=== PATIENT | female | born 1955 | race Caucasian/White ===

== ENCOUNTER 2016-10-21 05:14 | Day surgery (SDC) | payer MEDICAID ==
[2016-10-19 11:43] LABS: HEMATOCRIT 40.5 % (36.0-47.0); HEMOGLOBIN 13.3 g/dL (12.0-15.5); HGB HCT DIFFERENCE -0.6; MEAN CORPUSCULAR HEMOGLOBIN 27.9 pg (27.0-33.4); MEAN CORPUSCULAR HGB CONC 32.9 g/dL (32.0-36.0); MEAN CORPUSCULAR VOLUME 85 fl (80-97); RED BLOOD COUNT 4.76 10^6/uL (3.72-5.28); RED CELL DISTRIBUTION WIDTH 14.3 % (11.5-14.0)
[2016-10-19 11:58] LABS: APPEARANCE,URINE SLIGHTLY-CLOUDY; BILIRUBIN,URINE NEGATIVE (NEGATIVE); GLUCOSE, URINE NEGATIVE (NEGATIVE); KETONES,URINE NEGATIVE (NEGATIVE); LEUKOCYTE ESTERASE,URINE LARGE (NEGATIVE); NITRITE,URINE NEGATIVE (NEGATIVE); PROTEIN,URINE NEGATIVE (NEGATIVE); URINE SPECIFIC GRAVITY 1.012; UROBILINOGEN,URINE NEGATIVE mg/dL (<2.0)
[2016-10-19 12:10] LABS: ANION GAP 13 (5-19); BLOOD UREA NITROGEN 16 mg/dL (7-20); CALCIUM 9.3 mg/dL (8.4-10.2); CARBON DIOXIDE 27 mmol/L (22-30); CHLORIDE 103 mmol/L (98-107); CREATININE RESULT 1.06 mg/dL (0.52-1.25); GLUCOSE 129 mg/dL (75-110); POTASSIUM 4.3 mmol/L (3.6-5.0); SODIUM 143.1 mmol/L (137-145)
--- NOTE | 2016-10-19 13:40 | EKG REPORT ---
SEVERITY:- ABNORMAL ECG - SINUS RHYTHM LVH WITH IVCD, LAD AND SECONDARY REPOL ABNRM : Confirmed by: Aranza Gutierres MD 19-Oct-2016 13:38:56
[~2016-10-21 05:14] MED LIST: LACTATED RINGERS 1000 ML IV PRN; LIDOCAINE 0.5% INJ-PF (5 MG/ML) 50 ML SDV SUBCUT PRN
[2016-10-21] MEDS ORDERED: ACETAMINOPHEN 100 ML IV ONE (06:52)
[2016-10-21] MEDS ORDERED: FENTANYL CITRATE INJ/PF 100 MCG/2 ML AMPUL ONE (06:52)
[2016-10-21] MEDS ORDERED: MIDAZOLAM 2 MG/2 ML INJ ONE (06:52)
[2016-10-21] MEDS ORDERED: ONDANSETRON HCL INJ/PF 4 MG/2 ML SDV ONE (06:52)
[2016-10-21] MEDS ORDERED: PROPOFOL INJ 200 MG/20 ML VIAL IV ONE (06:52)
[2016-10-21] MEDS ORDERED: METOCLOPRAMIDE HCL INJ/PF 10 MG/2 ML SDV ONE (07:05)
[2016-10-21] MEDS ORDERED: FAMOTIDINE INJ/PF 20 MG/2 ML SDV IV ONE (07:05)
[2016-10-21] MEDS ORDERED: LIDOCAINE 1% INJ-PF (10 MG/ML) 30 ML SDV ONE (07:23)
[2016-10-21] MEDS ORDERED: DIPHENHYDRAMINE HCL 50 MG/ML VIAL IV PRN (07:36)
[2016-10-21] MEDS ORDERED: PROMETHAZINE HCL INJ 25 MG/1 ML VIAL IV PRN ×2 (07:36)
[2016-10-21] MEDS ORDERED: MORPHINE SULFATE 10 MG/ML INJ IV PRN (07:36)
[2016-10-21] MEDS ORDERED: FENTANYL CITRATE INJ/PF 100 MCG/2 ML AMPUL IV PRN ×2 (07:36)
[2016-10-21] MEDS ORDERED: MEPERIDINE HCL/PF INJ 25 MG/1 ML DISP.SYRIN IV PRN (07:36)
--- NOTE | 2016-10-21 08:55 | OPERATIVE REPORT E ---
Operative Report NAME: ANA CRISTINA DOVE : 1955 AGE: 61Y DATE OF SURGERY: 10/21/2016 ROOM: PREOPERATIVE DIAGNOSIS: Perimenopausal bleeding. POSTOPERATIVE DIAGNOSES: 1. Perimenopausal bleeding. 2. Endometrial polyp. PROCEDURE: 1. Operative hysteroscopy. 2. D and C. SURGEON: TAVIA BOCANEGRA M.D. COMPLICATIONS: None. ANESTHESIA: LMAC, paracervical block. INDICATIONS FOR PROCEDURE: The patient had perimenopausal bleeding, FSH of 30, and apparently irregular bleeding hysteroscopy approximately a year ago. Endometrial stripe preoperatively was preop showed a 3 mm stripe. An outpatient biopsy result that was not significant. It was recommended she undergo operative hysteroscopy for further assessment. The usual risks of bleeding, infection, anesthesia, and damage to organs and tissues were discussed and the patient understood. DESCRIPTION OF PROCEDURE: The patient was taken to the operating room and placed in the modified lithotomy position. After adequate anesthesia was performed, paracervical block placed. The anterior lip of the cervix grasped single tooth tenaculum. Cervix dilated to admit an operative hysteroscope. Hysteroscopy ensued demonstrating two thumb like small endometrial polyps present. . Atrophic endometrium noted elsewhere. No other diffuse lesions are noted in the pelvis. Operative hysteroscopy ensued. The curettage followed. Good hemostasis was noted at the completion of procedure productive of a moderate amount of tissue and bleeding with curettage. Biopsies were done. At completion of procedure, all instruments were removed. Patient awakened and taken to room in stable condition. DICTATING PHYSICIAN: TAVIA BOCANEGRA M.D. [id number] PHY#: [id number] ID: [id number] JOB#: [id number] ACCT: [id number] cc:TAVIA BOCANEGRA M.D. >
[2016-10-21] MEDS ORDERED: OXYCODONE-ACETAMINOPHEN 5-325 MG TABLET PO PRN (09:08)
[2016-10-21] MEDS ORDERED: MORPHINE SULFATE 10 MG/ML INJ INJ PRN (09:12)
[2016-10-21] MEDS ORDERED: PROMETHAZINE HCL INJ 25 MG/1 ML VIAL IM PRN (09:13)
[2016-10-21 09:43] VITALS: BP 130/74
== END 2016-10-21 09:20 | disposition home or self-care (01) ==
LOC: OROUT 05:14
PROVIDERS: ATTEND Specialist
PROC: 0UDB8ZX Extraction of Endometrium, Via Natural or Artificial Opening Endoscopic, Diagnostic (ICD-10-PCS; principal; 2016-10-21 07:15)
DX: N92.4 Excessive bleeding in the premenopausal period (principal); N84.0 Polyp of corpus uteri; J45.909 Unspecified asthma, uncomplicated; K21.9 Gastro-esophageal reflux disease without esophagitis; E11.9 Type 2 diabetes mellitus without complications; R01.1 Cardiac murmur, unspecified; Z88.6 Allergy status to analgesic agent; Z88.8 Allergy status to other drugs, medicaments and biological substances
CPT/HCPCS: 93005; 86900; 86901; 36415; 86850; 82962; 85027; 80048; 81001; 88305 ×2; 71020; 93010; 58558; J2250; J3010; J3490; J2765; J2405; J2704; S0028; J0131; 940

== ENCOUNTER → 2017-01-09 | Outpatient (CLI) | payer MEDICAID | LOC: WI 08:06 | PROVIDERS: ATTEND Family Medicine | DX: M81.0 Age-related osteoporosis without current pathological fracture (principal) | CPT/HCPCS: 77080 ==

== ENCOUNTER → 2017-11-09 | Outpatient (CLI) | payer MEDICAID ==
--- NOTE | 2017-11-14 09:08 | XCELERA REPORT ---
[address] [address] Transthoracic Echocardiogram Report Name: ANA CRISTINA DOVE Age: 62 yrs Gender: Female : 1955 Patient Status: Outpatient Patient Location: Study Date: 11/09/2017 12:44 PM Height: 64 in Weight: 192 lb BSA: 1.9 m2 Procedure: A complete two-dimensional transthoracic echocardiogram was performed (2D, M-mode, spectral and color flow Doppler). The study was technically difficult with many images being suboptimal in quality. Reason For Study: MURMUR Ordering Physician: JACKIE VIEIRA Performed By: Rachael Sharif Interpretation Summary The study was technically difficult with many images being suboptimal in quality. Left ventricular systolic function is low normal. Doppler measurements suggest pseudonormalized left ventricular relaxation, which is associated with grade II/IV or mild to moderate diastolic dysfunction Regional wall motion abnormalities cannot be excluded due to limited visualization. There is borderline concentric left ventricular hypertrophy. The left ventricle is grossly normal size. The right ventricular systolic function is normal. Borderline right ventricular enlargement. The right atrium is normal. Borderline left atrial enlargement. There is no mitral valve stenosis. There is a trace amount of mitral regurgitation No aortic regurgitation is present. There is no aortic valve stenosis There is a trace or physiologic amount of tricuspid regurgitation Tricuspid regurgitation jet envelope not well defined to measure RV systolic pressure accurately. The aortic root is not well visualized but is probably normal size. The inferior vena cava appeared normal and decreased < 50% with respiration (RAP 10-15 mmHg) There is no pericardial effusion. MMode/2D Measurements & Calculations RVDd: 2.9 cm LVIDd: 5.1 cm FS: 44.8 % Ao root diam: 2.5 cm IVSd: 0.97 cm LVIDs: 2.8 cm EDV(Teich): 121.9 ml LVPWd: 0.99 cm ESV(Teich): 29.5 ml Ao root area: 4.9 cm2 EF(Teich): 75.8 % Doppler Measurements & Calculations MV E max mario alberto: MV dec slope: Ao V2 max: LV V1 max P.7 cm/sec 133.7 cm/sec 2.8 mmHg MV A max mario alberto: 370.2 cm/sec2 Ao max PG: LV V1 max: 83.3 cm/sec MV dec time: 7.1 mmHg 83.1 cm/sec MV E/A: 0.91 0.20 sec PA V2 max: PI end-d mario alberto: TR max mario alberto: 71.4 cm/sec 91.9 cm/sec 227.5 cm/sec PA max PG: TR max P.0 mmHg 20.9 mmHg Left Ventricle The left ventricle is grossly normal size. There is borderline concentric left ventricular hypertrophy. Left ventricular systolic function is low normal. Doppler measurements suggest pseudonormalized left ventricular relaxation, which is associated with grade II/IV or mild to moderate diastolic dysfunction. Regional wall motion abnormalities cannot be excluded due to limited visualization. Right Ventricle Borderline right ventricular enlargement. There is normal right ventricular wall thickness. The right ventricular systolic function is normal. Atria The right atrium is normal. Borderline left atrial enlargement. Interarterial septum not well visualized and not well dopplered. Cannot comment on ASD/PFO presence. Mitral Valve The mitral valve is grossly normal. The mitral valve leaflets are sclerotic, but show no functional abnormalities. There is no mitral valve stenosis. There is a trace amount of mitral regurgitation. Aortic Valve The aortic valve is not well visualized secondary to technical limitations. There is no aortic valve stenosis. No aortic regurgitation is present. Tricuspid Valve The tricuspid valve is not well visualized, but is grossly normal. There is no tricuspid stenosis. There is a trace or physiologic amount of tricuspid regurgitation. Tricuspid regurgitation jet envelope not well defined to measure RV systolic pressure accurately. Pulmonic Valve The pulmonic valve is not well visualized. Great Vessels The aortic root is not well visualized but is probably normal size. The inferior vena cava appeared normal and decreased < 50% with respiration (RAP 10-15 mmHg). Effusions There is no pericardial effusion. : JACKIE VIEIRA > Jelani Valdivai
== END ==
LOC: SP 12:09
PROVIDERS: ATTEND Physician Assistant
DX: R01.1 Cardiac murmur, unspecified (principal)
CPT/HCPCS: 93306

== ENCOUNTER → 2018-01-23 | Outpatient (CLI) | payer MEDICAID ==
--- NOTE | 2018-01-23 14:18 | WOMENS IMAGING REPORT ---
EXAM DESCRIPTION: BILAT SCREENING MAMMO W/CAD COMPLETED DATE/TIME: 01/23/2018 1:36 pm REASON FOR STUDY: SCREENING MAMMO Z12.31 ENCNTR SCREEN MAMMOGRAM FOR MALIGNANT NEOPLASM OF DARRICK COMPARISON: Multiple since 2012 TECHNIQUE: Standard craniocaudal and mediolateral oblique views of each breast recorded using digita l acquisition. LIMITATIONS: None. FINDINGS: No masses, calcifications or architectural distortion. No areas of suspicion. Read with the assistance of CAD. .[facility] - R2 Cenova Version 1.3 .[facility] - R2 Cenova Version 1.3 .[facility] - R2 Cenova Version 2.4 .[facility] [place] R2 Cenova Version 2.4 .[facility] - R2 Performance Improvement Analyst Version 9.2 IMPRESSION: NORMAL MAMMOGRAM. BIRADS 1. BREAST DENSITY: a. The breasts are almost entirely fatty. BIRAD: 1 NEGATIVE RECOMMENDATION: ROUTINE SCREENING COMMENT: The patient has been notified of the results by letter per SA requirements. Additional no tification policies are in place for contacting patient with suspicious or incomplete findings. Quality ID #[id number]: The [employer] recommends an annual screening mammogram for women aged 40 years or over. This facility utilizes a reminder system to ensure that all patients receive reminder letters, and/or direct phone calls for appointments. This includes reminders for routine scr eening mammograms, diagnostic mammograms, or other Breast Imaging Interventions when appropriate. Th is patient will be placed in the appropriate reminder system. The [employer] (ACR) has developed recommendations for screening MRI of the breast s in certain patient populations, to be used in conjunction with mammography. Breast MRI surveillanc e may be appropriate for women with more than 20% lifetime risk of developing breast cancer as deter mined by genetic testing, significant family history of the disease, or history of mantle radiation f or Hodgkins Disease. ACR Practice Guidelines 2008. TECHNICAL DOCUMENTATION: FINDING NUMBER: (1) ASSESSMENT: (1) JOB ID: [id number] [employer]- All Rights Reserved Reading location - IP/workstation name: [email or web address]
== END ==
LOC: WI 12:46
PROVIDERS: ATTEND Physician Assistant
DX: Z12.31 Encounter for screening mammogram for malignant neoplasm of breast (principal)
CPT/HCPCS: 77067

== ENCOUNTER 2018-03-13 07:10 | Emergency (ER) | payer MEDICAID ==
[2018-03-13] MEDS ORDERED: INDOMETHACIN 50 MG CAPSULE PO ONE (07:51)
--- NOTE | 2018-03-13 08:19 | RADIOLOGY REPORT (SQ) ---
EXAM DESCRIPTION: FOOT RIGHT COMPLETE COMPLETED DATE/TIME: 03/13/2018 8:10 am REASON FOR STUDY: right foot pain, mcp joint worse COMPARISON: 09/29/2016 NUMBER OF VIEWS: Three views. TECHNIQUE: AP, lateral and oblique radiographic images acquired of the right foot. LIMITATIONS: None. FINDINGS: MINERALIZATION: Marked osteopenia. BONES: No acute fracture. Postsurgical changes with ankle fusion. Talonavicular osteophytes. JOINTS: No effusions. SOFT TISSUES: No soft tissue swelling. No foreign body. OTHER: No other significant finding. IMPRESSION: Surgical changes. Degenerative changes. TECHNICAL DOCUMENTATION: JOB ID: [id number] [employer]- All Rights Reserved Reading location - IP/workstation name: [email or web address]
--- NOTE | 2018-03-13 09:28 | ER Document Report ---
ED Extremity Problem, Lower - General Chief Complaint: Foot Pain Stated Complaint: ANKLE PAIN Time Seen by Provider: 03/13/18 07:30 Mode of Arrival: Ambulatory Information source: Patient Notes: Patient is a 62-year-old female with a history of gout who presents to the ER today for right foot pain, worse at the base of the big toe. Patient states this started approximately 1 week ago. She denies any injury. Patient admits to some mild redness and warmth around that great toe as well. 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 TRAVEL OUTSIDE OF THE [place] IN LAST 30 DAYS: No - Related Data Allergies/Adverse Reactions: allopurinol [Allopurinol] Allergy (Verified 09/29/16 08:12) celecoxib [From Celebrex] Allergy (Verified 09/29/16 08:12) ibuprofen [Ibuprofen] Allergy (Verified 09/29/16 08:12) Lactase [From Dairy Ease] Allergy (Verified 09/29/16 08:12) nickel [Nickel] Allergy (Verified 09/29/16 08:12) Past Medical History - General Information source: Patient - Social History Smoking Status: Never Smoker Frequency of alcohol use: Social Drug Abuse: None Family History: None Patient has suicidal ideation: No Patient has homicidal ideation: No - Past Medical History Cardiac Medical History: Denies: Hx Congestive Heart Failure, Hx Coronary Artery Disease, Hx Heart Attack, Hx Hypertension Pulmonary Medical History: Reports: Hx Asthma, Hx Bronchitis Denies: Hx COPD, Hx Pneumonia Neurological Medical History: Denies: Hx Cerebrovascular Accident, Hx Seizures Endocrine Medical History: Reports: Hx Diabetes Mellitus Type 2 Renal/ Medical History: Denies: Hx Peritoneal Dialysis GI Medical History: Denies: Hx Hepatitis, Hx Ulcer Musculoskeltal Medical History: Reports Hx Arthritis, Reports Hx Gout Infectious Medical History: Denies: Hx Hepatitis Past Surgical History: Reports: Hx Kidney (Renal Surgery), Hx Orthopedic Surgery - left finger, shoulder, right ankle, left 3rd finger. Denies: Hx Pacemaker - Immunizations Hx Diphtheria, Pertussis, Tetanus Vaccination: Yes Review of Systems - Review of Systems Constitutional: No symptoms reported EENT: No symptoms reported Cardiovascular: No symptoms reported Respiratory: No symptoms reported Gastrointestinal: No symptoms reported Genitourinary: No symptoms reported Female Genitourinary: No symptoms reported Musculoskeletal: See HPI Skin: No symptoms reported Hematologic/Lymphatic: No symptoms reported Neurological/Psychological: No symptoms reported Physical Exam - Vital signs Vitals: Temp Pulse Resp BP Pulse Ox 97.8 F 73 16 144/76 H 96 03/13/18 07:18 03/13/18 07:18 03/13/18 07:18 03/13/18 07:18 03/13/18 07:18 - Notes Notes: PHYSICAL EXAMINATION: GENERAL: well appearing, in no acute distress. HEAD: Atraumatic, normocephalic. EYES: Pupils equal round and reactive to light, extraocular movements intact, sclera anicteric, conjunctiva are normal. NECK: Normal range of motion, supple without lymphadenopathy LUNGS: CTAB and equal. No wheezes rales or rhonchi. HEART: Regular rate and rhythm without murmurs EXTREMITIES: Tender to base of right great toe over the MTP joint, mild erythema , otherwise normal range of motion, no pitting edema. No cyanosis. NEUROLOGICAL: Cranial nerves grossly intact. Normal sensory/motor exams. PSYCH: Normal mood, normal affect. SKIN: Warm, Dry, normal turgor, no rashes or lesions noted Course - Re-evaluation Re-evalutation: 03/13/18 09:35 Uric acid level is elevated today, x-ray reports chronic changes of fusion to the ankle but otherwise no acute pathology. Patient given 2 doses of Colcrys here, 11.2 mg and 10.6 mg to stop acute flare and sent home on indomethacin. - Vital Signs Vital signs: Temp Pulse Resp BP Pulse Ox 97.8 F 73 16 144/76 H 96 03/13/18 07:18 03/13/18 07:18 03/13/18 07:18 03/13/18 07:18 03/13/18 07:18 - Laboratory Laboratory results interpreted by me: 03/13/18 08:50 Uric Acid 10.4 H Discharge - Discharge Clinical Impression: Gout Qualifiers: Gout site: unspecified site Gout etiology: unspecified cause Chronicity: acute Qualified Code(s): M10.9 - Gout, unspecified Condition: Stable Disposition: HOME, SELF-CARE Additional Instructions: Return immediately for any new or worsening symptoms. Follow up with primary care provider, call tomorrow to make followup appointment. Prescriptions: Indomethacin [Indocin 50 mg Capsule] 50 mg PO BID #30 capsule Referrals: MICHI ISAACS MD [Primary Care Provider] - Follow up as needed
[2018-03-13] MEDS ORDERED: COLCHICINE 0.6 MG TABLET PO ONE ×2 (09:33)
[2018-03-13 10:08] VITALS: BP 160/70
== END 2018-03-13 10:08 | disposition home or self-care (01) ==
LOC: ER 07:10
DX: M10.9 Gout, unspecified (principal); E11.9 Type 2 diabetes mellitus without complications; J45.909 Unspecified asthma, uncomplicated; Z98.1 Arthrodesis status; Z88.8 Allergy status to other drugs, medicaments and biological substances; Z88.6 Allergy status to analgesic agent; Z91.048 Other nonmedicinal substance allergy status
CPT/HCPCS: 99283; 36415; 84550; 73630; J3490 ×2

== ENCOUNTER 2018-03-27 11:25 | Emergency (ER) | payer MEDICAID ==
[2018-03-27 11:39] VITALS: BP 168/80
--- NOTE | 2018-03-27 12:17 | ER Document Report ---
ED Medical Screen (RME) - General Mode of Arrival: Ambulatory Information source: Patient TRAVEL OUTSIDE OF THE [place] IN LAST 30 DAYS: No - General Chief Complaint: Asthma Exacerbation Stated Complaint: BREATHING PROBLEMS Time Seen by Provider: 03/27/18 12:09 Notes: Patient is a 62-year-old female who presents to the emergency department today with complaints of shortness of breath with associated wheezing. 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 Patient states since sitting down she feels much better now. Patient admits to not taking her inhaled oral steroid as prescribed, stating she sometimes does not take it for several days. Patient denies any cough, chest pain, or fevers. (ANNA GALO) - Related Data Allergies/Adverse Reactions: allopurinol [Allopurinol] Allergy (Verified 09/29/16 08:12) celecoxib [From Celebrex] Allergy (Verified 09/29/16 08:12) ibuprofen [Ibuprofen] Allergy (Verified 09/29/16 08:12) Lactase [From Dairy Ease] Allergy (Verified 09/29/16 08:12) nickel [Nickel] Allergy (Verified 09/29/16 08:12) dairy Allergy (Uncoded 03/27/18 11:26) Past Medical History - General Information source: Patient - Social History Cigarette use (# per day): No Chew tobacco use (# tins/day): No Frequency of alcohol use: None Drug Abuse: None Lives with: Family Family history: Reviewed & Not Pertinent - Past Medical History Cardiac Medical History: Pulmonary Medical History: Reports: Hx Asthma Endocrine Medical History: Reports: Hx Diabetes Mellitus Type 2 GI Medical History: Musculoskeltal Medical History: Reports Hx Arthritis, Reports Hx Gout Past Surgical History: Reports: Hx Kidney (Renal Surgery), Hx Orthopedic Surgery - left finger, shoulder, right ankle, left 3rd finger - Immunizations Hx Diphtheria, Pertussis, Tetanus Vaccination: Yes Review of Systems - Review of Systems Constitutional: No symptoms reported EENT: No symptoms reported Cardiovascular: No symptoms reported Respiratory: See HPI, Short of breath, Wheezing Gastrointestinal: No symptoms reported Genitourinary: No symptoms reported Female Genitourinary: No symptoms reported Musculoskeletal: No symptoms reported Skin: No symptoms reported Hematologic/Lymphatic: No symptoms reported Neurological/Psychological: No symptoms reported -: Yes All other systems reviewed and negative Physical Exam - Vital signs Vitals: Temp Pulse Resp BP Pulse Ox 98.2 F 57 L 16 168/80 H 96 03/27/18 11:37 03/27/18 11:37 03/27/18 11:37 03/27/18 11:37 03/27/18 11:37 - Notes Notes: Physical Exam: General: Alert, appears well. HEENT: Normocephalic. Atraumatic. PERRL. Extraocular movements intact. Oropharynx clear. Neck: Supple. Non-tender. Respiratory: No respiratory distress. Clear and equal breath sounds bilaterally. Cardiovascular: Regular rate and rhythm. Abdominal: Normal Inspection. Non-tender. No distension. Normal Bowel Sounds. Back: Non-tender. No deformity or step off. Extremities: Moves all four extremities. Upper extremities: Normal inspection. Normal ROM. Lower extremities: Normal inspection. No edema. Normal ROM. Neurological: Normal cognition. AAOx4. Normal speech. Psychological: Normal affect. Normal Mood. Skin: Warm. Dry. Normal color. (ANNA GALO) Course - Re-evaluation Re-evalutation: 03/27/18 12:17 Patient is well-appearing in no acute distress at this time. She states she has not been taking her inhaled oral steroid as she should and for over the last week has been having more wheezing with ambulation. She is asymptomatic in the emergency department. She denies any chest pain at this time and has not been experiencing chest pain with exertion. Discussed with patient need to start taking her medications as prescribed especially her inhaled oral steroid. Will provide 5 days of oral steroids as well as instructed patient to take her pro-air 2 puffs every 4 hours for the next 2 days. If her symptoms are not improving by the third day she is to follow-up with her primary care doctor for reevaluation or to the emergency department sooner if she develops any chest pain. (AMOR WATSON) - Vital Signs Vital signs: Temp Pulse Resp BP Pulse Ox 98.2 F 57 L 16 168/80 H 96 03/27/18 11:37 03/27/18 11:37 03/27/18 11:37 03/27/18 11:37 03/27/18 11:37 Doctor's Discharge - Discharge Clinical Impression: Asthma Qualifiers: Asthma severity: mild Asthma persistence: intermittent Asthma complication type : uncomplicated Qualified Code(s): J45.20 - Mild intermittent asthma, uncomplicated Disposition: HOME, SELF-CARE Instructions: Asthma (OM), Inhaled Bronchodilators (OM) Prescriptions: Albuterol Sulfate [Proair HFA Inhalation Aerosol 8.5 gm MDI] 2 puff IH Q4H PRN # 1 mdi PRN Reason: Prednisone [Deltasone 20 mg Tablet] 2 tab PO DAILY 5 Days #10 tablet Referrals: MICHI ISAACS MD [Primary Care Provider] - 03/30/18 Scribe Documentation - Scribe Written by Delbert:: Delbert Boston, 03/27/2018 1313 acting as scribe for :: Benny
== END 2018-03-27 12:20 | disposition home or self-care (01) ==
LOC: ER 11:25
DX: J45.20 Mild intermittent asthma, uncomplicated (principal); E11.9 Type 2 diabetes mellitus without complications
CPT/HCPCS: 99284

== ENCOUNTER 2018-05-16 08:16 | Emergency (ER) | payer MEDICAID ==
[2018-05-16 08:33] VITALS: BP 147/71
--- NOTE | 2018-05-16 09:18 | RADIOLOGY REPORT (SQ) ---
EXAM DESCRIPTION: HAND RIGHT 3 VIEWS COMPLETED DATE/TIME: 05/16/2018 8:48 am REASON FOR STUDY: rt 3rd digit pain COMPARISON: None. EXAM PARAMETERS: NUMBER OF VIEWS: Three views. TECHNIQUE: AP, lateral and oblique radiographic images acquired of the right hand. LIMITATIONS: None. FINDINGS: MINERALIZATION: Normal. BONES: No acute fracture or dislocation. No worrisome bone lesions. JOINTS: There are degenerative changes in the distal interphalangeal joints of all digits. This is m ost prominent at the 3rd digit with joint space narrowing and osteophytic spurring. SOFT TISSUES: No soft tissue swelling. No foreign body. OTHER: No other significant finding. IMPRESSION: Osteoarthritic changes most prominent at the distal interphalangeal joint of the 3rd dig it. No underlying fracture or dislocation. TECHNICAL DOCUMENTATION: JOB ID: [id number] [employer]- All Rights Reserved Reading location - IP/workstation name: [email or web address]
--- NOTE | 2018-05-16 09:51 | ER Document Report ---
ED Hand/Wrist Injury - General Chief Complaint: Finger Injury Stated Complaint: FINGER INJURY Time Seen by Provider: 05/16/18 09:47 Mode of Arrival: Ambulatory Information source: Patient Notes: 62-year-old female presents to ED for complaint of right third finger pain. She states she has injured them several times over the last couple weeks. There is some slight swelling. She is alert and oriented respirations regular and unlabored speaks with full sentences and walks with a even steady gait. TRAVEL OUTSIDE OF THE [place] IN LAST 30 DAYS: No - HPI Injury to: Middle finger Onset: Last week Where: Home Timing: Still present Quality of pain: Achy, Pressure Severity: Mild Pain Level: 1 - Related Data Allergies/Adverse Reactions: allopurinol [Allopurinol] Allergy (Verified 05/16/18 08:17) celecoxib [From Celebrex] Allergy (Verified 05/16/18 08:17) ibuprofen [Ibuprofen] Allergy (Verified 05/16/18 08:17) Lactase [From Dairy Ease] Allergy (Verified 05/16/18 08:17) nickel [Nickel] Allergy (Verified 05/16/18 08:17) dairy Allergy (Uncoded 05/16/18 08:17) Past Medical History - General Information source: Patient - Social History Smoking Status: Never Smoker Cigarette use (# per day): No Chew tobacco use (# tins/day): No Smoking Education Provided: No Frequency of alcohol use: Social Drug Abuse: None Lives with: Alone Family History: None Patient has suicidal ideation: No Patient has homicidal ideation: No - Medical History Medical History: Other - Past Medical History Cardiac Medical History: Reports: None Pulmonary Medical History: Reports: Hx Asthma, Hx Bronchitis EENT Medical History: Reports: None Endocrine Medical History: Reports: Hx Diabetes Mellitus Type 2 Renal/ Medical History: Reports: None Malignancy Medical History: Reports: None GI Medical History: Reports: None Musculoskeletal Medical History: Reports Hx Arthritis, Reports Hx Gout Skin Medical History: Reports None Psychiatric Medical History: Reports: None Traumatic Medical History: Reports: None Infectious Medical History: Reports: None Past Surgical History: Reports: Hx Gynecologic Surgery, Hx Kidney (Renal Surgery ), Hx Orthopedic Surgery - left finger, shoulder, right ankle, left 3rd finger. Denies: Hx Pacemaker - Immunizations Hx Diphtheria, Pertussis, Tetanus Vaccination: Yes Review of Systems - Review of Systems Constitutional: No symptoms reported EENT: No symptoms reported Cardiovascular: No symptoms reported Respiratory: No symptoms reported Gastrointestinal: No symptoms reported Genitourinary: No symptoms reported Female Genitourinary: No symptoms reported Musculoskeletal: Other - Pain third finger right hand Skin: No symptoms reported Hematologic/Lymphatic: No symptoms reported Neurological/Psychological: No symptoms reported -: Yes All other systems reviewed and negative Physical Exam - Vital signs Vitals: Temp Pulse Resp BP Pulse Ox 98.4 F 74 16 147/71 H 98 05/16/18 08:32 05/16/18 08:32 05/16/18 08:32 05/16/18 08:32 05/16/18 08:32 Interpretation: Normal - General General appearance: Appears well, Alert - HEENT Head: Normocephalic, Atraumatic Eyes: Normal Pupils: PERRL - Respiratory Respiratory status: No respiratory distress Chest status: Nontender Breath sounds: Normal Chest palpation: Normal - Cardiovascular Rhythm: Regular Heart sounds: Normal auscultation Murmur: No - Abdominal Inspection: Normal Distension: No distension Bowel sounds: Normal Tenderness: Nontender Organomegaly: No organomegaly - Back Back: Normal, Nontender - Extremities General upper extremity: Normal inspection, Normal color, Normal ROM, Normal temperature General lower extremity: Normal inspection, Nontender, Normal color, Normal ROM , Normal temperature, Normal weight bearing. No: Cale's sign Shoulder: Normal, Nontender Arm: Normal, Nontender Elbow: Normal, Nontender Forearm: Normal, Nontender Wrist: Normal, Nontender Hand: Tender - Third finger right hand, No evidence of human bite, No evidence of FB, Swelling. No: Nontender, Abrasion, Deformity, Dislocation, Ecchymosis, Instability, Nail injury, Tendon deficit - Neurological Neuro grossly intact: Yes Cognition: Normal Orientation: AAOx4 Cowley Coma Scale Eye Opening: Spontaneous [place] Coma Scale Verbal: Oriented Cowley Coma Scale Motor: Obeys Commands Cowley Coma Scale Total: 15 Speech: Normal Motor strength normal: LUE, RUE, LLE, RLE Sensory: Normal - Psychological Associated symptoms: Normal affect, Normal mood - Skin Skin Temperature: Warm Skin Moisture: Dry Skin Color: Normal Course - Re-evaluation Re-evalutation: 05/16/18 09:57 Discussed x-ray with patient and written report of x-ray given the patient to follow-up with her primary doctor. Patient was discharged home. She states she cannot take NSAIDs and she will discuss with Dr. Isaacs what he wants her to take for her arthritis. - Vital Signs Vital signs: Temp Pulse Resp BP Pulse Ox 98.4 F 74 16 147/71 H 98 18 08:32 05/16/18 08:32 05/16/18 08:32 05/16/18 08:32 05/16/18 08:32 - Diagnostic Test Radiology reviewed: Image reviewed, Reports reviewed Discharge - Discharge Clinical Impression: arthritis in 3rd finger right Condition: Stable Disposition: HOME, SELF-CARE Additional Instructions: Arthritis Your symptoms are due to arthritis. Arthritis is an inflammation of the joints. There are many types -- osteoarthritis (due to "wear and tear"), auto- immmune arthritis (such as rheumatoid, lupus, Domenico's, and others), and crystal -induced arthritis (such as gout and pseudogout). The physician's examination, combined with laboratory tests, will determine the cause of your arthritis. All types of arthritis are treated with antiinflammatory medications. Other medication may be required for special types of arthritis, or if your problem does not respond to the antiinflammatory medicine. Local warmth may be helpful. Move the involved joints through the full range of motion daily. Mild exercise is usually still possible for most persons with arthritis (ask your physician). Swimming provides good exercise without damaging the joints. Contact the physician if you are worsening in any way. FOLLOW-UP CARE: If you have been referred to a physician for follow-up care, call the physician s office for an appointment as you were instructed or within the next two days. If you experience worsening or a significant change in your symptoms, notify the physician immediately or return to the Emergency Department at any time for re-evaluation. Forms: Elevated Blood Pressure Referrals: MICHI ISAACS MD [Primary Care Provider] - Follow up as needed
== END 2018-05-16 09:59 | disposition home or self-care (01) ==
LOC: ER 08:16
DX: M19.041 Primary osteoarthritis, right hand (principal); J45.909 Unspecified asthma, uncomplicated; E11.9 Type 2 diabetes mellitus without complications; Z88.8 Allergy status to other drugs, medicaments and biological substances; Z88.6 Allergy status to analgesic agent; Z91.018 Allergy to other foods
CPT/HCPCS: 99283

== ENCOUNTER 2018-10-22 11:09 | Emergency (ER) | payer MEDICAID ==
[2018-10-22 11:43] VITALS: BP 151/80
--- NOTE | 2018-10-22 12:31 | ER Document Report ---
HPI - HPI Time Seen by Provider: 10/22/18 11:50 Pain Level: 3 Notes: Patient is a 63-year-old female who presents with left ankle pain and swelling. Patient reports history of gout, states this feels just like a gout flareup. States she does not have any medications for gout. Denies any injury to the area. - CONSTITUTIONAL Constitutional: DENIES: Fever, Chills - REPRODUCTIVE Reproductive: DENIES: : - MUSCULOSKELETAL Musculoskeletal: REPORTS: Extremity pain - left leg Past Medical History - General Information source: Patient - Social History Smoking Status: Never Smoker Chew tobacco use (# tins/day): No Frequency of alcohol use: Rare Drug Abuse: None Family History: None Patient has suicidal ideation: No Patient has homicidal ideation: No - Past Medical History Cardiac Medical History: Pulmonary Medical History: Reports: Hx Asthma, Hx Bronchitis Endocrine Medical History: Reports: Hx Diabetes Mellitus Type 2 Renal/ Medical History: Denies: Hx Peritoneal Dialysis GI Medical History: Musculoskeletal Medical History: Reports Hx Arthritis, Reports Hx Gout Past Surgical History: Reports: Hx Gynecologic Surgery, Hx Kidney (Renal S urgery), Hx Orthopedic Surgery - left finger, shoulder, right ankle, left 3rd finger. Denies: Hx Pacemaker - Immunizations Hx Diphtheria, Pertussis, Tetanus Vaccination: Yes Vertical Provider Document - CONSTITUTIONAL Notes: PHYSICAL EXAMINATION: GENERAL: Well-appearing, well-nourished and in no acute distress. HEAD: Atraumatic, normocephalic. EYES: Pupils equal round extraocular movements intact, conjunctiva are normal. ENT: Nares patent NECK: Normal range of motion LUNGS: No respiratory distress Musculoskeletal: Normal range of motion, erythema noted to left ankle and foot, dorsalis pedis pulse palpable, mild edema noted no ecchymosis. NEUROLOGICAL: Normal speech, normal gait. PSYCH: Normal mood, normal affect. SKIN: Warm, Dry, normal turgor, no rashes or lesions noted. - INFECTION CONTROL TRAVEL OUTSIDE OF THE [place] IN LAST 30 DAYS: No Course - Re-evaluation Re-evalutation: Patient has history and physical are consistent with acute gout flareup. Patient will be placed on appropriate medication and discharged home. - Vital Signs Vital signs: Temp Pulse Resp BP Pulse Ox 99.1 F 71 16 151/80 H 96 10/22/18 11:39 10/22/18 11:39 10/22/18 11:39 10/22/18 11:39 10/22/18 11:39 Discharge - Discharge Clinical Impression: Gout Qualifiers: Gout site: foot Gout etiology: unspecified cause Chronicity: acute Laterality: left Qualified Code(s): M10.9 - Gout, unspecified Condition: Stable Disposition: HOME, SELF-CARE Additional Instructions: Gout You have been diagnosed as having gout. Gout is a problem caused by an excess of uric acid, a natural chemical found in the body. The cause of this disease is unknown. Gout arthritis occurs when crystals of uric acid form in the joints. The big toe is the most common joint involved, but any joint can become affected. Persons with gout may also form uric acid kidney stones, resulting in flank pain and blood in the urine. Nodules of uric acid may form under the skin. The first step of treatment is to decrease the inflammation in the joint with antiinflammatory medication. Medication to lower the uric acid level in the blood may then be prescribed. This medication should be taken regularly, as any sudden change in dosage may provoke an attack of gout. Some foods, such as red meat, can provoke an attack in some gout sufferers. Call the doctor if new symptoms arise, or if you do not improve. Gout Diet Changing your diet can decrease the uric acid in your blood. High levels of uric acid cause gouty arthritis and uric acid kidney stones. If you have gout, you should avoid meats that are high in purine. Meat products to avoid include liver, kidneys, and brains. In general, poultry is better than red meats. Seafoods to avoid include anchovies, sardines, mills, mackerel, and scallops. In addition to limiting purine-rich foods, people with gout should limit protein intake to 10-15% of total calories. Carbohydrate intake should be around 50% of total daily calories. Limit fat intake to 30% of total daily calories. Cholesterol intake should be less than 300 mg/day. Maintain or achieve a healthy body weight. Weight loss should be gradual. Rapid weight loss can actually increase uric acid levels temporarily. Alcohol, especially beer, should be avoided. Get plenty of fluids. This dilutes urinary uric acid, and helps prevent uric acid kidney stones. Drink eight to twelve cups of water daily. Prescriptions: Indomethacin [Indocin 25 mg Capsule] 25 mg PO ASDIR PRN #30 capsule PRN Reason: Referrals: MICHI ISAACS MD [Primary Care Provider] - Follow up as needed
== END 2018-10-22 12:35 | disposition home or self-care (01) ==
LOC: ER 11:09
DX: M10.9 Gout, unspecified (principal); M79.89 Other specified soft tissue disorders; M25.572 Pain in left ankle and joints of left foot
CPT/HCPCS: 99283

== ENCOUNTER → 2018-11-16 | Outpatient (CLI) | payer MEDICAID ==
--- NOTE | 2018-11-16 15:47 | RADIOLOGY REPORT (SQ) ---
EXAM DESCRIPTION: FOOT RIGHT COMPLETE COMPLETED DATE/TIME: 11/16/2018 3:22 pm REASON FOR STUDY: PAIN IN RIGHT FOOT M79.671 PAIN IN RIGHT FOOT COMPARISON: 09/29/2016 NUMBER OF VIEWS: Three views. TECHNIQUE: AP, lateral and oblique radiographic images acquired of the right foot. LIMITATIONS: None. FINDINGS: MINERALIZATION: Normal. BONES: Post fusion of the right ankle joint subtalar joint with tibial benigno and screws. Old bone infa rct in the calcaneus. JOINTS: Joint space narrowing bony spurring at talonavicular and navicular-cuneiform joints. SOFT TISSUES: Diffuse forefoot soft tissue swelling. No foreign body. OTHER: No other significant finding. IMPRESSION: Diffuse dorsal forefoot soft tissue swelling without underlying fracture. Old ankle zuleyka nt subtalar joint effusions. Osteoarthritis at the talonavicular and intertarsal joints. TECHNICAL DOCUMENTATION: JOB ID: [id number] [employer]- All Rights Reserved Reading location - IP/workstation name: [email or web address]
== END ==
LOC: OD 15:01
PROVIDERS: ATTEND Family Medicine
DX: M79.671 Pain in right foot (principal); M19.071 Primary osteoarthritis, right ankle and foot

== ENCOUNTER → 2019-03-01 | Outpatient (CLI) | payer MEDICAID ==
--- NOTE | 2019-03-01 11:02 | RADIOLOGY REPORT (SQ) ---
EXAM DESCRIPTION: LUMBAR SPINE COMPLETE COMPLETED DATE/TIME: 03/01/2019 10:38 am REASON FOR STUDY: LOW BACK PAIN M54.5 LOW BACK PAIN COMPARISON: 06/07/2013 NUMBER OF VIEWS: Five views including obliques. TECHNIQUE: AP, lateral, oblique, and sacral radiographic images acquired of the lumbar spine. LIMITATIONS: None. FINDINGS: MINERALIZATION: Normal. SEGMENTATION: Normal. No transitional anatomy. ALIGNMENT: Normal. VERTEBRAE: Maintained height. No fracture or worrisome bone lesion. DISCS: Preserved height. No significant osteophytes or end plate irregularity. POSTERIOR ELEMENTS: Pedicles and facets are intact. No pars defect or posterior arch defects. HARDWARE: None in the spine. PARASPINAL SOFT TISSUES: Normal. PELVIS: Intact as visualized. No fractures or worrisome bone lesions. SI joints intact. OTHER: No other significant finding. IMPRESSION: NORMAL 5 VIEW LUMBAR SPINE. TECHNICAL DOCUMENTATION: JOB ID: [id number] [employer]- All Rights Reserved Reading location - IP/workstation name: [email or web address]
== END ==
LOC: OD 10:14
PROVIDERS: ATTEND Family Medicine
DX: M54.5 Low back pain (principal)
CPT/HCPCS: 72110

== ENCOUNTER → 2019-03-28 | Outpatient (CLI) | payer MEDICAID ==
--- NOTE | 2019-03-28 16:08 | WOMENS IMAGING REPORT ---
EXAM DESCRIPTION: 3D SCREENING MAMMO BILAT COMPLETED DATE/TIME: 03/28/2019 10:28 am REASON FOR STUDY: Z12.31 ENCOUNTER FOR SCREENING MAMMOGRAM FOR MALIGNANT NEOPLASM OF BREAST Z12.31 ENCNTR SCREEN MAMMOGRAM FOR MALIGNANT NEOPLASM OF DARRICK COMPARISON: Multiple since 2013 EXAM PARAMETERS: Views: Standard craniocaudal and mediolateral oblique views of each breast recorded using digital acquisition and breast tomosynthesis. Read with the assistance of CAD. .[facility] - R2 [employer]ulator Version 9.2 LIMITATIONS: None. FINDINGS: No suspicious masses, suspicious calcifications or architectural distortion. No areas of c oncern. IMPRESSION: NEGATIVE MAMMOGRAM. BIRADS 1. BREAST DENSITY: b. There are scattered areas of fibroglandular density. BIRAD: ASSESSMENT: 1 NEGATIVE RECOMMENDATION: ROUTINE SCREENING COMMENT: The patient has been notified of the results by letter per MQSA requirements. Additional no tification policies are in place for contacting patient with suspicious or incomplete findings. Quality ID #[id number]: The [employer] recommends an annual screening mammogram for women aged 40 years or over. This facility utilizes a reminder system to ensure that all patients receive reminder letters, and/or direct phone calls for appointments. This includes reminders for routine scr eening mammograms, diagnostic mammograms, or other Breast Imaging Interventions when appropriate. Th is patient will be placed in the appropriate reminder system. TECHNICAL DOCUMENTATION: FINDING NUMBER: (1) ASSESSMENT: (1) JOB ID: [id number] [employer]- All Rights Reserved Reading location - IP/workstation name: [email or web address]
== END ==
LOC: WI 09:39
PROVIDERS: ATTEND Physician Assistant
DX: Z12.31 Encounter for screening mammogram for malignant neoplasm of breast (principal)
CPT/HCPCS: 77063; 77067

== ENCOUNTER 2019-03-29 10:13 | Emergency (ER) | payer MEDICAID ==
[2019-03-29 10:33] VITALS: BP 125/65
--- NOTE | 2019-03-29 10:43 | ER Document Report ---
HPI - HPI Time Seen by Provider: 03/29/19 10:39 Pain Level: 3 Notes: Patient is a 63-year-old female with history of sciatica and GERD who presents complaining of left scapular/upper back pain status post fall 2 weeks ago. Patient states that she landed on that left side from a standing position at that time. Patient states that she is prone to falls, but did not hit her head or lose consciousness. Patient states that she has had soreness in that area that comes and goes. She has been using and performing conservative measures at home, but has lingering pain so she wanted to get it evaluated. She otherwise is able to perform her ADLs without difficulties. No other concerns or complaints. Denies any headache, fever, head injury, neck pain, changes in vision/speech/mentation/hearing, URI, sore throat, chest pain, palpitations, syncope, cough, shortness of breath, wheeze, dyspnea, abdominal pain, nausea/vomiting/diarrhea, urinary retention, dysuria, hematuria, loss of control of bowel or bladder, numbness/tingling, saddle anesthesia, muscle paralysi s/weakness, or rash. - ROS Systems Reviewed and Negative: Yes All other systems reviewed and negative - REPRODUCTIVE Reproductive: DENIES: : Past Medical History - Social History Smoking Status: Never Smoker Family History: None - Past Medical History Cardiac Medical History: Pulmonary Medical History: Reports: Hx Asthma, Hx Bronchitis Endocrine Medical History: Reports: Hx Diabetes Mellitus Type 2 Renal/ Medical History: Denies: Hx Peritoneal Dialysis GI Medical History: Musculoskeletal Medical History: Reports Hx Arthritis, Reports Hx Gout Past Surgical History: Reports: Hx Gynecologic Surgery, Hx Kidney (Renal Surgery), Hx Orthopedic Surgery - left finger, shoulder, right ankle, left 3rd finger. Denies: Hx Pacemaker - Immunizations Hx Diphtheria, Pertussis, Tetanus Vaccination: Yes Vertical Provider Document - CONSTITUTIONAL Agree With Documented VS: Yes Notes: PHYSICAL EXAMINATION: GENERAL: Well-appearing, well-nourished and in no acute distress. NECK: Normal range of motion, supple without lymphadenopathy. Non-tender. Spurling negative. No rigidity/meningismus. LUNGS: Breath sounds clear to auscultation bilaterally and equal. No wheezes rales or rhonchi. HEART: Regular rate and rhythm without murmurs, rubs, gallops. Musculoskeletal: Lt shoulder: FROM to passive/active. Strength 5+/5 due to pain. Neg impingement test. Neg speed test. No crepitus. No erythema or warmth. No deformity or ecchymosis. RC intact 5+/5 strength. + reproducible tenderness to palp of the left trapezius muscle near the superior scapular area. N/V intact distal. Extremities: No cyanosis, clubbing, or edema b/l. Peripheral pulses 2+. Capillary refill less than 3 seconds. NEUROLOGICAL: Normal speech, normal gait. Normal sensory, motor exams PSYCH: Normal mood, normal affect. SKIN: Warm, Dry, normal turgor, no rashes or lesions noted. - INFECTION CONTROL TRAVEL OUTSIDE OF THE [place] IN LAST 30 DAYS: No Course - Re-evaluation Re-evalutation: 03/29/19 Patient is an afebrile, well-hydrated, 63 year-old female who presents to the ED with left trapezius muscle pain which I suspect to be a sprain versus strain. Vitals are acceptable without any significant tachycardia, tachypnea, or hypoxia. PE is otherwise unremarkable for any neurovascular compromise, obvious tendon/ligament rupture, obvious fracture/dislocation, septic joint. X-ray was unremarkable for any acute pathology. Patient is nontoxic-appearing. No other labs or imaging warranted at this time based on H&P. Conservative measures otherwise for symptoms. Recheck with your PCM in 3-5 days. Consider consult orthopedics. Return to the ED with any worsening/concerning symptoms otherwise as reviewed in discharge. Patient is in agreement. - Vital Signs Vital signs: Temp Pulse Resp BP Pulse Ox 98.1 F 65 18 125/65 97 03/29/19 10:33 03/29/19 10:33 03/29/19 10:33 03/29/19 10:33 03/29/19 10:33 Discharge - Discharge Clinical Impression: Strain of left trapezius muscle Qualifiers: Encounter type: initial encounter Qualified Code(s): S46.812A - Strain of other muscles, fascia and tendons at shoulder and upper arm level, left arm, initial encounter Condition: Stable Disposition: HOME, SELF-CARE Additional Instructions: Rest, Ice, Compression, Elevation Tylenol/ibuprofen as needed Light stretches daily Strength exercises as able Moist heat and massage may help F/u with your PCP in 3-5 days for a recheck Consider consult(s) with Orthopedics/physical therapy for ongoing/worsening symptoms Return to the ED with any worsening symptoms and/or development of fever, headache, chest pain, palpitations, syncope, shortness of breath, trouble breathing, abdominal pain, n/v/d, muscle weakness/paralysis, numbness/tingling, swelling, redness, or other worsening symptoms that are concerning to you. Referrals: JOSEFINA MONZON PA [Primary Care Provider] - Follow up as needed [facility] [Provider Group] - Follow up as needed
--- NOTE | 2019-03-29 11:49 | RADIOLOGY REPORT (SQ) ---
EXAM DESCRIPTION: SCAPULA LEFT COMPLETED DATE/TIME: 03/29/2019 11:07 am REASON FOR STUDY: pain s/p fall 2 wks ago COMPARISON: None. TECHNIQUE: Two views of the left scapula LIMITATIONS: None. FINDINGS: No displaced fracture or other radiographic abnormality of the left scapula. Limited eval uation of the left shoulder and included left chest are unremarkable. IMPRESSION: No displaced fracture or other radiographic abnormality of the left scapula. Limited ev aluation of the left shoulder and included left chest are unremarkable. TECHNICAL DOCUMENTATION: JOB ID: [id number] [employer]- All Rights Reserved Reading location - IP/workstation name: [email or web address]
== END 2019-03-29 11:28 | disposition home or self-care (01) ==
LOC: ER 10:13
DX: S29.012A Strain of muscle and tendon of back wall of thorax, initial encounter (principal); M79.18 Myalgia, other site; M89.8X1 Other specified disorders of bone, shoulder; W19.XXXA Unspecified fall, initial encounter; J45.909 Unspecified asthma, uncomplicated; E11.9 Type 2 diabetes mellitus without complications
CPT/HCPCS: 99283

== ENCOUNTER → 2019-04-05 | Outpatient (CLI) | payer MEDICAID ==
[2019-04-05 12:04] LABS: ANION GAP 9 (5-19); BLOOD UREA NITROGEN 22 mg/dL (7-20); CALCIUM 9.7 mg/dL (8.4-10.2); CARBON DIOXIDE 29 mmol/L (22-30); CHLORIDE 106 mmol/L (98-107); GLUCOSE 119 mg/dL (75-110); POTASSIUM 4.9 mmol/L (3.6-5.0); SODIUM 143.7 mmol/L (137-145)
== END ==
LOC: OD 11:03
PROVIDERS: ATTEND Family Medicine
DX: E87.5 Hyperkalemia (principal)
CPT/HCPCS: 36415; 80048

== ENCOUNTER 2019-05-18 19:14 | Inpatient (IN) | payer MEDICAID ==
--- NOTE | 2019-05-18 19:42 | ER Document Report ---
ED Medical Screen (RME) - General Chief Complaint: Fever Stated Complaint: FEVER Time Seen by Provider: 05/18/19 19:26 Primary Care Provider: MICHI ISAACS MD [Primary Care Provider] - Follow up as needed Notes: Patient is a 63-year-old female who presents to the emergency department with a chief complaint of a fever. She has had her fever on and off for the past week. She states that she has been taking Tylenol. Denies any cough, but states she had phlegm in her throat earlier today. Denies any dysuria. Past medical history of chronic back pain. She states that she does have some neck and back pain, but this is chronic. She has a past medical history of diabetes and hyperlipidemia. Denies any acute pain. Exam: Clear breath sounds bilaterally. I have greeted and performed a rapid initial assessment of this patient. A comprehensive ED assessment and evaluation of the patient, analysis of test results and completion of medical decision making process will be conducted by an additional ED providers. TRAVEL OUTSIDE OF THE [place] IN LAST 30 DAYS: No - Related Data Allergies/Adverse Reactions: allopurinol [Allopurinol] Allergy (Verified 05/18/19 19:37) celecoxib [From Celebrex] Allergy (Verified 05/18/19 19:37) ibuprofen [Ibuprofen] Allergy (Verified 05/18/19 19:37) Lactase [From Dairy Ease] Allergy (Verified 05/18/19 19:37) nickel [Nickel] Allergy (Verified 05/18/19 19:37) dairy Allergy (Uncoded 05/18/19 19:37) Past Medical History - Social History Frequency of alcohol use: None Drug Abuse: None Family history: Reviewed & Not Pertinent - Past Medical History Cardiac Medical History: Pulmonary Medical History: Reports: Hx Asthma, Hx Bronchitis Endocrine Medical History: Reports: Hx Diabetes Mellitus Type 2 Renal/ Medical History: Denies: Hx Peritoneal Dialysis GI Medical History: Musculoskeltal Medical History: Reports Hx Arthritis, Reports Hx Gout Past Surgical History: Reports: Hx Gynecologic Surgery, Hx Kidney (Renal Surgery), Hx Orthopedic Surgery - left finger, shoulder, right ankle, left 3rd finger. Denies: Hx Pacemaker - Immunizations Hx Diphtheria, Pertussis, Tetanus Vaccination: Yes Physical Exam - Vital signs Vitals: Temp Pulse Resp BP Pulse Ox 100.1 F 78 18 109/61 97 05/18/19 19:21 05/18/19 19:21 05/18/19 19:21 05/18/19 19:21 05/18/19 19:21 Course - Vital Signs Vital signs: Temp Pulse Resp BP Pulse Ox 100.1 F 78 18 109/61 97 05/18/19 19:21 05/18/19 19:21 05/18/19 19:21 05/18/19 19:21 05/18/19 19:21 Doctor's Discharge - Discharge Referrals: MICHI ISAACS MD [Primary Care Provider] - Follow up as needed
[2019-05-18 20:14] LABS: HEMATOCRIT 40.5 % (36.0-47.0); HEMOGLOBIN 13.2 g/dL (12.0-15.5); MEAN CORPUSCULAR HEMOGLOBIN 27.2 pg (27.0-33.4); MEAN CORPUSCULAR HGB CONC 32.5 g/dL (32.0-36.0); MEAN CORPUSCULAR VOLUME 84 fl (80-97); PLATELET COUNT 279 10^3/uL (150-450); RED BLOOD COUNT 4.83 10^6/uL (3.72-5.28); RED CELL DISTRIBUTION WIDTH 15.1 % (11.5-14.0); WHITE BLOOD COUNT 20.4 10^3/uL (4.0-10.5)
[2019-05-18 20:33] LABS: VENOUS BLOOD BASE EXCESS -3.1 mmol/L; VENOUS BLOOD PCO2 34.6 mmHg (35-63); VENOUS BLOOD PH 7.4 (7.30-7.42)
[2019-05-18 20:34] LABS: ALKALINE PHOSPHATASE 78 U/L (38-126); ANION GAP 11 (5-19); ASPARTATE AMINO TRANSFERASE 33 U/L (14-36); BILIRUBIN,DIRECT 0.3 mg/dL (0.0-0.4); BILIRUBIN,TOTAL 1.1 mg/dL (0.2-1.3); BLOOD UREA NITROGEN 18 mg/dL (7-20); CALCIUM 9.1 mg/dL (8.4-10.2); CARBON DIOXIDE 22 mmol/L (22-30); CHLORIDE 106 mmol/L (98-107); GLUCOSE 130 mg/dL (75-110); POTASSIUM 3.6 mmol/L (3.6-5.0); TOTAL PROTEIN 7.4 g/dL (6.3-8.2)
[2019-05-18 20:35] LABS: ABSOLUTE LYMPHOCYTES# (MANUAL) 1.6 10^3/uL (0.5-4.7); ABSOLUTE MONOCYTES # (MANUAL) 1.6 10^3/uL (0.1-1.4); BAND NEUTROPHILS % (MANUAL) 1 % (3-5); BASOPHILS % (MANUAL) 0 % (0-2); EOSINOPHILS % (MANUAL) 0 % (0-6); LYMPHOCYTES % (MANUAL) 7 % (13-45); MONOCYTES % (MANUAL) 8 % (3-13); SEGMENTED NEUTROPHILS % (MAN) 83 % (42-78); TOTAL CELLS COUNTED 100
[2019-05-18 20:36] LABS: ANISOCYTOSIS 1+; HYPOCHROMASIA 1+; PLATELET COMMENT ADEQUATE; POLYCHROMASIA SLIGHT
[2019-05-18] MEDS ORDERED: RINGERS SOLUTION,LACTATED 1,000 ML IV ONE (20:42)
--- NOTE | 2019-05-18 20:47 | ER Document Report ---
ED General - General Chief Complaint: Fever Stated Complaint: FEVER Time Seen by Provider: 05/18/19 19:26 Primary Care Provider: MICHI ISAACS MD [Primary Care Provider] - Follow up as needed TRAVEL OUTSIDE OF THE [place] IN LAST 30 DAYS: No - HPI Notes: 63-year-old female presents with fever. Patient states for the last week she has off-and-on had a fever at home. She is general malaise not feeling well. Developed a mild cough this morning, nonproductive. No runny nose or nasal congestion, no sore throat. No abdominal pain. No back pain. No urgency or dysuria. Moderate intensity, gradual onset, nonradiating. No recent camping, recent antibiotic use, no tick bites. Sugars were little bit high the day before but are better controlled now she states. No other modifying factors, no other associated symptoms, no other provocative or palliative factors. - Related Data Allergies/Adverse Reactions: allopurinol [Allopurinol] Allergy (Verified 05/18/19 19:37) celecoxib [From Celebrex] Allergy (Verified 05/18/19 19:37) ibuprofen [Ibuprofen] Allergy (Verified 05/18/19 19:37) Lactase [From Dairy Ease] Allergy (Verified 05/18/19 19:37) nickel [Nickel] Allergy (Verified 05/18/19 19:37) dairy Allergy (Uncoded 05/18/19 19:37) Past Medical History - Social History Smoking Status: Never Smoker Frequency of alcohol use: None Drug Abuse: None Family History: None Patient has suicidal ideation: No Patient has homicidal ideation: No - Past Medical History Cardiac Medical History: Pulmonary Medical History: Reports: Hx Asthma, Hx Bronchitis Endocrine Medical History: Reports: Hx Diabetes Mellitus Type 2 Renal/ Medical History: Denies: Hx Peritoneal Dialysis GI Medical History: Musculoskeletal Medical History: Reports Hx Arthritis, Reports Hx Gout Past Surgical History: Reports: Hx Gynecologic Surgery, Hx Kidney (Renal Surgery), Hx Orthopedic Surgery - left finger, shoulder, right ankle, left 3rd finger. Denies: Hx Pacemaker - Immunizations Hx Diphtheria, Pertussis, Tetanus Vaccination: Yes Review of Systems - Review of Systems Notes: Review of systems as in the history of present illness, otherwise negative x 10 systems. Physical Exam - Vital signs Vitals: Temp Pulse Resp BP Pulse Ox 100.1 F 78 18 109/61 97 08/10/19 19:21 05/18/19 19:21 05/18/19 19:21 05/18/19 19:21 05/18/19 19:21 - Notes Notes: General: Well developed . Dry mucosa HEENT: Normocephalic, atraumatic. Pupils equal round reactive to light. No JVD. Chest: No trauma. Respiratory: Good air exchange, normal excursion. Cardiac: Regular rhythm. No murmurs or gallops. Abdomen: Soft, benign. Nondistended. Nontender. Back: No asymmetry or gross abnormality. Motor: Grossly normal power and tone. Neurologic: Alert, nonfocal. Cranial nerves II-12 are intact. Sensation intact. Vascular: Well perfused. Normal peripheral pulses. Skin: No petechiae or purpura. Course - Vital Signs Vital signs: Temp Pulse Resp BP Pulse Ox 100.3 F 78 21 H 122/83 96 05/18/19 20:20 05/18/19 19:21 05/18/19 22:01 05/18/19 22:01 05/18/19 22:01 - Laboratory Result Diagrams: 05/18/19 19:50 05/18/19 19:50 Laboratory results interpreted by me: 05/18/19 05/18/19 05/18/19 19:50 19:50 20:20 WBC 20.4 H RDW 15.1 H Seg Neuts % (Manual) 83 H Band Neutrophils % 1 L Lymphocytes % (Manual) 7 L Abs Neuts (Manual) 17.1 H Abs Monocytes (Manual) 1.6 H VBG pCO2 34.6 L Creatinine 1.41 H Est GFR ( Amer) 46 L Est GFR (Non-Af Amer) 38 L Glucose 130 H Urine Blood Urine Nitrite Ur Leukocyte Esterase 05/18/19 22:05 WBC RDW Seg Neuts % (Manual) Band Neutrophils % Lymphocytes % (Manual) Abs Neuts (Manual) Abs Monocytes (Manual) VBG pCO2 Creatinine Est GFR ( Amer) Est GFR (Non-Af Amer) Glucose Urine Blood SMALL H Urine Nitrite POSITIVE H Ur Leukocyte Esterase LARGE H - EKG Interpretation by [place] EKG shows normal: Sinus rhythm Rate: Normal When compared to previous EKG there are: No significant change Additional EKG results interpreted by me: 05/18/19 20:46 No acute ischemic changes - Transfer of Care Notes: 05/18/19 20:45 Patient was evaluated by the [facility] provider prior to my evaluation. Studies / interventions have been ordered by this provider and are currently pending. 63-year-old female with intermittent fever unclear etiology, no clear source. Clinically appears dehydrated. Mild tachycardia is noted. Plan at this time proceed with broad laboratory evaluation screening for sepsis, x-ray, urine, v olume resuscitation, reassess. 05/18/19 22:48 Labs reviewed, significant leukocytosis at over 20,000 is noted. There is evidence of mild acute kidney injury with elevated creatinine over baseline. L FTs unremarkable lactate normal. Urinalysis was substantially delayed in acquisition but ultimately shows evidence of infection. Patient did have some transient borderline hypotension that is been very responsive to crystalloid resuscitation. The time of dictation her pressures have normalized for some time. She is covered initially with broad-spectrum antibiotics given the unclear source that she does not complain of any urinary symptoms. However at this time, it appears that her source is from her urine. She will be admitted to the IMCU under Dr. Isaacs for further evaluation resuscitation. Critical Care Note - Critical Care Note Total time excluding time spent on procedures (mins): 35 Comments: Exclusive of procedures Discharge - Discharge Clinical Impression: Sepsis Qualifiers: Sepsis type: sepsis due to unspecified organism Sepsis acute organ dysfunction status: unspecified Qualified Code(s): A41.9 - Sepsis, unspecified organism Condition: Serious Disposition: ADMITTED INPATIENT Admitting Provider: Romel [facility] Admitted: [facility] Referrals: MICHI ISAACS MD [Primary Care Provider] - Follow up as needed
--- NOTE | 2019-05-18 20:55 | RADIOLOGY REPORT (SQ) ---
EXAM DESCRIPTION: XR CHEST 1 VIEW COMPLETED DATE/TME: 05/18/2019 19:39 CLINICAL HISTORY: fever COMPARISON: 10/19/2016 FINDINGS: Single frontal view of the chest. Cardiomediastinal silhouette: Normal size and contour. Lungs: No consolidation, pneumothorax, or pleural effusion. Bones: No acute osseous abnormality. Leads overlie the chest. Upper abdomen: No abnormality identified. IMPRESSION: 1. No acute pulmonary process identified.
[2019-05-18] MEDS ORDERED: VANCOMYCIN HCL INJ 1000 MG VIAL IV ONE (21:02)
[2019-05-18] MEDS ORDERED: CEFEPIME 2 GM/D5W RTU 2 GM/50 ML RTUPB IV ONE (21:02)
[2019-05-18] MEDS ORDERED: ACETAMINOPHEN 325 MG TABLET PO ONE (21:03)
[2019-05-18] MEDS ORDERED: ACETAMINOPHEN 325 MG TABLET ONE (21:17)
[2019-05-18 22:35] LABS: APPEARANCE,URINE SLIGHTLY-CLOUDY; BILIRUBIN,URINE NEGATIVE (NEGATIVE); COLOR,URINE YELLOW; GLUCOSE, URINE NEGATIVE (NEGATIVE); KETONES,URINE NEGATIVE (NEGATIVE); LEUKOCYTE ESTERASE,URINE LARGE (NEGATIVE); NITRITE,URINE POSITIVE (NEGATIVE); PROTEIN,URINE NEGATIVE (NEGATIVE); URINE SPECIFIC GRAVITY 1.011; UROBILINOGEN,URINE NEGATIVE mg/dL (<2.0)
[2019-05-18] MEDS ORDERED: RINGERS SOLUTION,LACTATED 1,000 ML IV PRN (22:49)
[2019-05-18] MEDS ORDERED: GLUCAGON,HUMAN RECOMB 1 MG INJ IM PRN (22:54)
[2019-05-18] MEDS ORDERED: DEXTROSE 40% GEL 15 GM TUBE PO PRN ×2 (22:54)
[2019-05-18] MEDS ORDERED: DEXTROSE 50%-WATER 25 GM/50 ML DISP.SYRIN IV PRN ×2 (22:54)
[2019-05-19] MEDS ORDERED: METOPROLOL TARTRATE 25 MG TABLET ONE (01:52)
[2019-05-19] MEDS ORDERED: METOPROLOL TARTRATE 25 MG TABLET PO ONE (02:00)
[2019-05-19] MEDS ORDERED: ONDANSETRON HCL INJ/PF 4 MG/2 ML SDV ONE (02:06)
[2019-05-19] MEDS ORDERED: DILTIAZEM HCL INJ 25 MG/5 ML VIAL ONE (02:08)
[2019-05-19] MEDS ORDERED: DILTIAZEM HCL/D5W 125 MG/125 ML RTUINJ IV ONE (02:14)
[2019-05-19] MEDS: NORMAL SALINE 1000 ML 1,000 ML IV PRN ×3 (02:30→23:21)
[2019-05-19] MEDS ORDERED: ONDANSETRON HCL INJ/PF 4 MG/2 ML SDV IV PRN (02:37)
[2019-05-19] MEDS ORDERED: DILTIAZEM HCL/D5W 125 MG/125 ML RTUINJ IV PRN (02:38)
[2019-05-19] MEDS ORDERED: ACETAMINOPHEN 650 MG SUPP.RECT PR PRN (02:44)
--- NOTE | 2019-05-19 02:44 | Progress Note ---
Provider Note Provider Note: Critical Care Note: Rapid Response: 0155 Clinical: Patient with sudden onset of atrial fibrillation with rapid ventr icular response. Patient was also noted to have nausea and vomiting and appeared dyspneic and moderately distressed. Nursing staff noted the patient to be febrile 102.1 F. EKG showed atrial fibrillation with rapid ventricular response and heart rate was consistently in the 120s to 130s on the monitor. Patient's chest showed mild fine bibasilar rales on auscultation. Heart showed a irregularly irregular rate and rhythm with a tachycardia in the 130s on auscultation. Abdomen soft with bowel sounds slightly diminished and no tenderness to gross exam. Extremities showed no significant edema and capillary refill was less than 3 seconds in both the upper and lower extremities. Treatment: Patient was treated with: 1. Zofran 4 mg IV x1 dose. 2. Cardizem 20 mg IV bolus x1 dose. 3. Diltiazem infusion initially at 10 mg/h with titration. 4. Hold metoprolol 12.5 mg p.o. as ordered by Dr. Urena (due to patient's nausea and vomiting). 5. Acetaminophen 650 mg rectal suppository x1. End of My Rapid Response Participation: 0220 Total Critical Care Time: 25 minutes
[2019-05-19] MEDS ORDERED: DILTIAZEM HCL INJ 25 MG/5 ML VIAL IV ONE (02:45)
[2019-05-19] MEDS: FAMOTIDINE 20 MG TABLET PO SCH ×3 (02:49→21:12)
[2019-05-19 02:53] LABS: ARTERIAL BLOOD BASE EXCESS -4.6 mmol/L; ARTERIAL BLOOD H2CO3 0.82 mmol/L (1.05-1.35); ARTERIAL BLOOD HCO3 18.1 mmol/L (20-24); ARTERIAL BLOOD O2 SATURATION 98.2 % (94-98); ARTERIAL BLOOD PCO2 27.4 mmHg (35-45); ARTERIAL BLOOD PH 7.44 (7.35-7.45); ARTERIAL BLOOD PO2 108.1 mmHg (80-100); ARTERIAL BLOOD TOTAL CO2 18.9 mmol/L (21-25)
[2019-05-19 02:54] LABS: ARTERIAL BLOOD FIO2 3l
--- NOTE | 2019-05-19 03:00 | PDOC H&P ---
History of Present Illness Admission Date/PCP: 05/18/19 22:55 MICHI ISAACS MD Patient complains of: Fever History of Present Illness: ANA CRISTINA DOVE is a 63 year old female This is a 63-year-old female presenting the emergency department with a fever. Patient stated for the last week she had a cough and on and a fever at home Patients feel tired and fatigue not feeling well developed mild cough in the morning nonproductive no runny nose no nasal congestions no sore throat Patient is denied any abdominal pain no nausea no vomiting In the emergency departments all work-up pretty much stable except patient's white count was elevated patient was hypotensive's and patient urine is positive and ER physicians call me for admit for the urosepsis Patient is came to the floor and the nurses noted that the patient's was suddenly get hypoxic and tachypneic and the patient to not feeling well and at that point patient heart rate was 1 30-1 40 range and patient's was giving the Cardizem push and put on Cardizem drips After the Cardizem drip patient is feeling much better when I saw in the floor patient denied any chest pain to than any shortness of the breath no nausea no vomiting Patient's according to her she does not have a known heart disease. Review the echocardiogram was done in 2018 some mild diastolic dysfunctions but no other abnormalities Patient received the IV antibiotic including the vancomycin's and cefepime in the ER With the sudden getting hypoxic and tachypneic we will order the CT angiogram to rule out any underlying pulmonary embolism Discussed with the patient about CODE STATUS patients want to intubations and CPR but do not want to keep her tubes more than 12 hours and if it is require more than 12-hour patient wants to be a comfort care Patients do not have any family member and pretty much what the patient's medical decisions today was fully alert awake oriented x4 Discussed this discussions with the myself and the nurses in IMCU and patient aware about that Past Medical History Cardiac Medical History: Pulmonary Medical History: Reports: Asthma, Bronchitis Endocrine Medical History: Reports: Diabetes Mellitus Type 2 GI Medical History: Musculoskeltal Medical History: Reports: Arthritis, Gout Psychiatric Medical History: Denies: Depression Hematology: Denies: Anemia, Sickle Cell Disease Past Surgical History Past Surgical History: Reports: Orthopedic Surgery - left finger, shoulder, right ankle, left 3rd finger Denies: Amputation, Pacemaker Social History Information Source: Patient Smoking Status: Never Smoker Frequency of Alcohol Use: None Hx Recreational Drug Use: No Drugs: None Hx Prescription Drug Abuse: No Family History Family History: None, Reviewed & Not Pertinent Parental Family History Reviewed: No Children Family History Reviewed: Unknown Sibling(s) Family History Reviewed.: Unknown Medication/Allergy Home Medications: Alendronate Sodium [Fosamax 10 Mg Tablet] 10 mg PO ASDIR PRN 11/16/12 Fluticasone Propionate [Flovent Hfa] 12 gm IH ASDIR PRN 11/16/12 Diazepam 5 mg PO BID PRN 07/02/15 Gabapentin 300 mg PO QHS 07/02/15 Meclizine HCl 12.5 mg PO BID PRN 07/02/15 Naproxen Sodium [Aleve] 220 mg PO Q6H PRN 07/02/15 Ondansetron [Zofran Odt 4 mg Tablet] 4 mg PO BID PRN 07/02/15 Solifenacin Succinate [Vesicare] 5 mg PO DAILY 07/02/15 Indomethacin [Indocin 50 mg Capsule] 50 mg PO BID #30 capsule 03/13/18 Albuterol Sulfate [Proair HFA Inhalation Aerosol 8.5 gm MDI] 2 puff IH Q4H PRN #1 mdi 03/27/18 Prednisone [Deltasone 20 mg Tablet] 2 tab PO DAILY 5 Days #10 tablet 03/27/18 Indomethacin [Indocin 25 mg Capsule] 25 mg PO ASDIR PRN #30 capsule 10/22/18 Allergies/Adverse Reactions: allopurinol [Allopurinol] Allergy (Verified 05/18/19 19:37) celecoxib [From Celebrex] Allergy (Verified 05/18/19 19:37) ibuprofen [Ibuprofen] Allergy (Verified 05/18/19 19:37) Lactase [From Dairy Ease] Allergy (Verified 05/18/19 19:37) nickel [Nickel] Allergy (Verified 05/18/19 19:37) dairy Allergy (Uncoded 05/18/19 19:37) Review of Systems Constitutional: PRESENT: fever(s). ABSENT: headache(s), weight gain, weight loss Eyes: ABSENT: visual disturbances Ears: ABSENT: hearing changes Cardiovascular: ABSENT: chest pain, dyspnea on exertion, edema, orthropnea, palpitations Respiratory: PRESENT: cough. ABSENT: hemoptysis Gastrointestinal: ABSENT: abdominal pain, constipation, diarrhea, hematemesis, hematochezia, nausea, vomiting Genitourinary: ABSENT: dysuria, hematuria Musculoskeletal: ABSENT: joint swelling Integumentary: ABSENT: rash, wounds Neurological: ABSENT: abnormal gait, abnormal speech, confusion, dizziness, focal weakness, syncope Psychiatric: ABSENT: anxiety, depression, homidical ideation, suicidal ideation Endocrine: ABSENT: cold intolerance, heat intolerance, menstrual abnormalities, polydipsia, polyuria Hematologic/Lymphatic: ABSENT: easy bleeding, easy bruising, lymphadenopathy Physical Exam Vital Signs: Temp Pulse Resp BP Pulse Ox 99 F 89 18 134/76 H 95 05/19/19 00:40 05/19/19 00:53 05/19/19 00:40 05/19/19 00:53 05/19/19 00:40 Intake & Output 05/17/19 05/18/19 05/19/19 06:59 06:59 06:59 Intake Total 1050 Balance 1050 Weight 40.9 kg General appearance: PRESENT: no acute distress, mild distress, well-developed, well-nourished Head exam: PRESENT: atraumatic, normocephalic Eye exam: PRESENT: conjunctiva pink, EOMI, PERRLA. ABSENT: scleral icterus Ear exam: PRESENT: normal external ear exam Mouth exam: PRESENT: moist, tongue midline Neck exam: PRESENT: full ROM. ABSENT: carotid bruit, JVD, lymphadenopathy, thyromegaly Respiratory exam: PRESENT: decreased breath sounds Cardiovascular exam: PRESENT: RRR. ABSENT: diastolic murmur, rubs, systolic murmur Pulses: PRESENT: normal dorsalis pedis pul, +2 pedal pulses bilateral Vascular exam: PRESENT: normal capillary refill GI/Abdominal exam: PRESENT: normal bowel sounds, soft. ABSENT: distended, guarding, mass, organolmegaly, rebound, tenderness Rectal exam: PRESENT: deferred Extremities exam: ABSENT: pedal edema Neurological exam: PRESENT: alert, awake, oriented to person, oriented to place, oriented to time, oriented to situation, CN II-XII grossly intact. ABSENT: motor sensory deficit Psychiatric exam: PRESENT: appropriate affect, normal mood. ABSENT: homicidal ideation, suicidal ideation Skin exam: PRESENT: dry, intact, warm. ABSENT: cyanosis, rash Results Laboratory Results: 05/18/19 19:50 05/18/19 05/18/19 05/18/19 19:50 19:50 20:20 WBC 20.4 H RBC 4.83 Hgb 13.2 Hct 40.5 MCV 84 MCH 27.2 MCHC 32.5 RDW 15.1 H Plt Count 279 Seg Neutrophils % Not Reportable Lymphocytes % Not Reportable Monocytes % Not Reportable Eosinophils % Not Reportable Basophils % Not Reportable Absolute Neutrophils Not Reportable Absolute Lymphocytes Not Reportable Absolute Monocytes Not Reportable Absolute Eosinophils Not Reportable Absolute Basophils Not Reportable VBG pH 7.40 VBG pCO2 34.6 L VBG HCO3 21.0 VBG Base Excess -3.1 Sodium 139.4 Potassium 3.6 Chloride 106 Carbon Dioxide 22 Anion Gap 11 BUN 18 Creatinine 1.41 H Est GFR ( Amer) 46 L Est GFR (Non-Af Amer) 38 L Glucose 130 H Lactic Acid Calcium 9.1 Total Bilirubin 1.1 AST 33 Alkaline Phosphatase 78 Total Protein 7.4 Albumin 4.0 Urine Color Urine Appearance Urine pH Ur Specific [place] Urine Protein Urine Glucose (UA) Urine Ketones Urine Blood Urine Nitrite Ur Leukocyte Esterase Urine WBC (Auto) Urine RBC (Auto) 05/18/19 05/18/19 20:20 22:05 WBC RBC Hgb Hct MCV MCH MCHC RDW Plt Count Seg Neutrophils % Lymphocytes % Monocytes % Eosinophils % Basophils % Absolute Neutrophils Absolute Lymphocytes Absolute Monocytes Absolute Eosinophils Absolute Basophils VBG pH VBG pCO2 VBG HCO3 VBG Base Excess Sodium Potassium Chloride Carbon Dioxide Anion Gap BUN Creatinine Est GFR ( Amer) Est GFR (Non-Af Amer) Glucose Lactic Acid 1.4 Calcium Total Bilirubin AST Alkaline Phosphatase Total Protein Albumin Urine Color YELLOW Urine Appearance SLIGHTLY-CLOUDY Urine pH 6.0 Ur Specific [place] 1.011 Urine Protein NEGATIVE Urine Glucose (UA) NEGATIVE Urine Ketones NEGATIVE Urine Blood SMALL H Urine Nitrite POSITIVE H Ur Leukocyte Esterase LARGE H Urine WBC (Auto) 101 Urine RBC (Auto) 5 Impressions: Chest X-Ray 05/18/19 19:39 IMPRESSION: 1. No acute pulmonary process identified. Assessment & Plan - Diagnosis (1) Sepsis Qualifiers: Sepsis type: sepsis due to unspecified organism Sepsis acute organ dysfunction status: unspecified Qualified Code(s): A41.9 - Sepsis, unspecified organism Is this a current diagnosis for this admission?: Yes Plan: Most likely from the urosepsis will wait for the all cultures start on broad- spectrum IV antibiotics continuous IV fluid (2) Urinary tract infection Qualifiers: Urinary tract infection type: site unspecified Is this a current diagnosis for this admission?: Yes Plan: Continues to IV antibiotic (3) Type 2 diabetes mellitus Qualifiers: Diabetes mellitus intermediate insulin use: without intermediate use Is this a current diagnosis for this admission?: Yes Plan: Is a sliding scale (4) Hypoxia Is this a current diagnosis for this admission?: Yes Plan: We will get the CT angiogram to rule out any PE with the sudden onset of hypoxia Rule out any acute coronary syndromes (5) Tachycardia Is this a current diagnosis for this admission?: Yes Plan: Continues to Cardizem drips Most likely underlying fever Patient never had any A. fib before We will put the Lovenox 1 mg/kg subcu twice a day (6) Hypotension Qualifiers: Hypotension type: unspecified hypotension type Qualified Code(s): I95.9 - Hypotension, unspecified Is this a current diagnosis for this admission?: Yes Plan: Sepsis (7) Hyperlipidemia Qualifiers: Hyperlipidemia type: unspecified Qualified Code(s): E78.5 - Hyperlipidemia, unspecified Is this a current diagnosis for this admission?: Yes - Time Time Spent: 50 to 70 Minutes Medications reviewed and adjusted accordingly: Yes Anticipated discharge: Home Within: Other - Inpatient Certification Based on my medical assessment, after consideration of the patient's comorbidities, presenting symptoms, or acuity I expect that the services needed warrant INPATIENT care.: Yes I certify that my determination is in accordance with my understanding of Medicare's requirements for reasonable and necessary INPATIENT services [42 CFR 412.3e].: Yes Medical Necessity: Significant Comorbidiites Make Outpatient Treatment Too Risky, Need For IV Fluids, Need For Continuous Telemetry Monitoring, Need for IV Antibiotics Post Hospital Care: D/C Watch Crystal Cutter Documentation - Plan Summary Plan Summary: Patient seen and examined very extensive discussion in IMCU at 3:00 in the morning With acute change in the patient's conditions currently stable Discussed with the nursing staff Discussed about the CODE STATUS as discussed above
[2019-05-19 03:10] LABS: ANION GAP 12 (5-19); BLOOD UREA NITROGEN 17 mg/dL (7-20); CALCIUM 8.5 mg/dL (8.4-10.2); CARBON DIOXIDE 19 mmol/L (22-30); CHLORIDE 109 mmol/L (98-107); CREATINE KINASE 90 U/L (30-135); GLUCOSE 145 mg/dL (75-110); POTASSIUM 3.6 mmol/L (3.6-5.0)
[2019-05-19 03:31] LABS: CREATINE KINASE MB 2.35 ng/mL (<4.55); TROPONIN I 0.018 ng/mL
--- NOTE | 2019-05-19 03:53 | RADIOLOGY REPORT (SQ) ---
CLINICAL HISTORY: ABD PAIN COMPARISON: None. TECHNIQUE: CT ABDOMEN PELVIS WITHOUT IV CONTRAST on 05/19/2019 12:00 AM CDT This exam was performed according to our departmental dose-optimization program, which includes automated exposure control, adjustment of the mA and/or kV according to patient size and/or use of iterative reconstruction technique. FINDINGS: Lower lungs are clear. Abdomen: Liver is fatty in attenuation. There is no biliary dilatation. Gallbladder is unremarkable. The pancreas and spleen are normal in appearance. Adrenal glands are normal. Kidneys are moderately atrophic. Abdominal aorta is normal in course and caliber without aneurysm. There is no free air. There is no retroperitoneal adenopathy.There is a moderate fat-containing umbilical hernia. Pelvis: There is no bowel obstruction. There is a Herrera catheter in the urinary bladder. There is no free fluid. Uterus is normal in size. Appendix is normal. Skeleton: There are no acute osseous findings. No suspicious bony lesions. IMPRESSION: No acute process.
--- NOTE | 2019-05-19 04:04 | RADIOLOGY REPORT (SQ) ---
EXAM: CT chest angiography with intravenous contrast CLINICAL DATA: 63-year-old female with cough, shortness of breath, tachycardia, rule out PE. TECHNICAL DATA: Following the administration of intravenous contrast, multiple high-resolution axial images of the chest were performed followed by sagittal and coronal reconstructed images. Coronal oblique MIP images were also performed. The CT study is performed according to ALARA (as low as reasonably achievable) or ALARA/IMAGE GENTLY, with automatic adjustment of mA and/or kV according to patient size. Performed on: 05/19/2019 at 3:19 AM COMPARISONS: Prior chest x-ray performed on 05/18/2019. No prior CT scans were available for comparison. FINDINGS: There is satisfactory visualization and contrast opacification of pulmonary arteries. No definite intra-arterial filling defects are identified to suggest acute or chronic pulmonary embolism. The thoracic aorta is normal in caliber and contour without evidence of aneurysm or dissection. The lungs are well expanded and are clear. There is no evidence of a pneumothorax. There are no pleural effusions. The heart is normal in size. There is no pericardial effusion. There is no evidence of hilar, mediastinal or axillary lymphadenopathy. No acute osseous abnormality is identified. The visualized upper abdominal structures are unremarkable. There is a very small hiatal hernia. There is elevation of the right hemidiaphragm. IMPRESSION: 1. No CT evidence to suggest acute or chronic pulmonary embolism, aortic aneurysm or aortic dissection. 2. No evidence of acute intrathoracic disease. 3. Very small hiatal hernia. 4. Elevation of the right hemidiaphragm.
[2019-05-19] MEDS: ACETAMINOPHEN 325 MG TABLET PO PRN ×3 (04:16→20:06)
[2019-05-19] MEDS ORDERED: MAGNESIUM SULFATE/D5W 1 GM/100 ML RTUPB IV ONE (04:30)
[2019-05-19] MEDS: ENOXAPARIN SODIUM INJ 40 MG/0.4 ML DISP.SYRIN SUBCUT SCH ×2 (05:41→17:24)
[2019-05-19] MEDS: INSULIN LISPRO 100 UNIT/ML 3 ML VIAL SUBCUT SCH ×4 (08:24→21:02)
--- NOTE | 2019-05-19 09:13 | EKG REPORT ---
SEVERITY:- ABNORMAL ECG - ATRIAL FIBRILLATION LEFT BUNDLE BRANCH BLOCK : Confirmed by: Yung Stover MD 19-May-2019 09:12:45
--- NOTE | 2019-05-19 09:15 | EKG REPORT ---
SEVERITY:- ABNORMAL ECG - SINUS TACHYCARDIA VENTRICULAR TRIGEMINY LVH WITH IVCD, LAD AND SECONDARY REPOL ABNRM : Confirmed by: Yung Stover MD 19-May-2019 09:14:54
[2019-05-19 09:16] LABS: HEMATOCRIT 36.1 % (36.0-47.0); HEMOGLOBIN 11.4 g/dL (12.0-15.5); MEAN CORPUSCULAR HEMOGLOBIN 26.7 pg (27.0-33.4); MEAN CORPUSCULAR HGB CONC 31.7 g/dL (32.0-36.0); MEAN CORPUSCULAR VOLUME 84 fl (80-97); PLATELET COUNT 212 10^3/uL (150-450); RED BLOOD COUNT 4.28 10^6/uL (3.72-5.28); RED CELL DISTRIBUTION WIDTH 15.1 % (11.5-14.0); WHITE BLOOD COUNT 26.7 10^3/uL (4.0-10.5)
[2019-05-19 09:21] LABS: ANION GAP 10 (5-19); BLOOD UREA NITROGEN 17 mg/dL (7-20); CALCIUM 8.3 mg/dL (8.4-10.2); CARBON DIOXIDE 22 mmol/L (22-30); CHLORIDE 108 mmol/L (98-107); GLUCOSE 133 mg/dL (75-110); POTASSIUM 3.5 mmol/L (3.6-5.0)
[2019-05-19 09:32] LABS: CREATINE KINASE MB 2.45 ng/mL (<4.55); TROPONIN I 0.041 ng/mL
[2019-05-19 09:35] LABS: ABSOLUTE LYMPHOCYTES# (MANUAL) 1.6 10^3/uL (0.5-4.7); ABSOLUTE MONOCYTES # (MANUAL) 0.5 10^3/uL (0.1-1.4); ANISOCYTOSIS SLIGHT; BASOPHILS % (MANUAL) 0 % (0-2); EOSINOPHILS % (MANUAL) 0 % (0-6); LYMPHOCYTES % (MANUAL) 6 % (13-45); MONOCYTES % (MANUAL) 2 % (3-13); PLATELET COMMENT ADEQUATE; SEGMENTED NEUTROPHILS % (MAN) 92 % (42-78); TOTAL CELLS COUNTED 100
[2019-05-19] MEDS ORDERED: ENOXAPARIN SODIUM INJ 30 MG/0.3 ML DISP.SYRIN SUBCUT SCH (10:00)
[2019-05-19] MEDS ORDERED: CEFEPIME 2 GM/D5W RTU 2 GM/50 ML RTUPB IV SCH (10:00)
[2019-05-19] MEDS: CEFEPIME HCL 2 GM in DEXTROSE 5%-WATER 50 ML IV SCH ×2 (10:16→21:12)
--- NOTE | 2019-05-19 11:44 | PDOC PROGRESS REPORT ---
Subjective Progress Note for:: 05/19/19 Subjective:: Patient is feeling much better this morning Patient CT angiogram is negative for any PE CT abdomen and pelvis is all negative Patient seen by the grant writer Denied any chest pain to than any shortness of the breath Reason For Visit: UROSEPSIS Physical Exam Vital Signs: Temp Pulse Resp BP Pulse Ox 97.7 F 69 16 102/52 L 100 05/19/19 07:42 05/19/19 07:42 05/19/19 07:42 05/19/19 07:42 05/19/19 07:42 Intake & Output 05/18/19 05/19/19 05/20/19 06:59 06:59 06:59 Intake Total 1437 50 Output Total 810 Balance 627 50 Weight 40.9 kg General appearance: PRESENT: no acute distress, well-developed, well-nourished Head exam: PRESENT: atraumatic, normocephalic Eye exam: PRESENT: conjunctiva pink, EOMI, PERRLA. ABSENT: scleral icterus Ear exam: PRESENT: normal external ear exam Mouth exam: PRESENT: moist, tongue midline Neck exam: PRESENT: full ROM. ABSENT: carotid bruit, JVD, lymphadenopathy, thyromegaly Respiratory exam: PRESENT: clear to auscultation nghia Cardiovascular exam: PRESENT: RRR. ABSENT: diastolic murmur, rubs, systolic murmur Pulses: PRESENT: normal dorsalis pedis pul, +2 pedal pulses bilateral Vascular exam: PRESENT: normal capillary refill GI/Abdominal exam: PRESENT: normal bowel sounds, soft. ABSENT: distended, guarding, mass, organolmegaly, rebound, tenderness Rectal exam: PRESENT: deferred Neurological exam: PRESENT: alert, awake, oriented to person, oriented to place, oriented to time, oriented to situation, CN II-XII grossly intact. ABSENT: motor sensory deficit Psychiatric exam: PRESENT: appropriate affect, normal mood. ABSENT: homicidal ideation, suicidal ideation Skin exam: PRESENT: dry, intact, warm. ABSENT: cyanosis, rash Results Laboratory Results: 05/19/19 08:46 05/19/19 08:46 05/18/19 05/18/19 05/18/19 19:50 19:50 20:20 WBC 20.4 H RBC 4.83 Hgb 13.2 Hct 40.5 MCV 84 MCH 27.2 MCHC 32.5 RDW 15.1 H Plt Count 279 Seg Neutrophils % Not Reportable Lymphocytes % Not Reportable Monocytes % Not Reportable Eosinophils % Not Reportable Basophils % Not Reportable Absolute Neutrophils Not Reportable Absolute Lymphocytes Not Reportable Absolute Monocytes Not Reportable Absolute Eosinophils Not Reportable Absolute Basophils Not Reportable Carbonic Acid HCO3/H2CO3 Ratio ABG pH ABG pCO2 ABG pO2 ABG HCO3 ABG O2 Saturation ABG Base Excess VBG pH 7.40 VBG pCO2 34.6 L VBG HCO3 21.0 VBG Base Excess -3.1 FiO2 Sodium 139.4 Potassium 3.6 Chloride 106 Carbon Dioxide 22 Anion Gap 11 BUN 18 Creatinine 1.41 H Est GFR ( Amer) 46 L Est GFR (Non-Af Amer) 38 L Glucose 130 H Lactic Acid Calcium 9.1 Magnesium Total Bilirubin 1.1 AST 33 Alkaline Phosphatase 78 Total Protein 7.4 Albumin 4.0 Urine Color Urine Appearance Urine pH Ur Specific [place] Urine Protein Urine Glucose (UA) Urine Ketones Urine Blood Urine Nitrite Ur Leukocyte Esterase Urine WBC (Auto) Urine RBC (Auto) 05/18/19 05/18/19 05/19/19 20:20 22:05 02:30 WBC RBC Hgb Hct MCV MCH MCHC RDW Plt Count Seg Neutrophils % Lymphocytes % Monocytes % Eosinophils % Basophils % Absolute Neutrophils Absolute Lymphocytes Absolute Monocytes Absolute Eosinophils Absolute Basophils Carbonic Acid 0.82 L HCO3/H2CO3 Ratio 22:1 ABG pH 7.44 ABG pCO2 27.4 L ABG pO2 108.1 H ABG HCO3 18.1 L ABG O2 Saturation 98.2 H ABG Base Excess -4.6 VBG pH VBG pCO2 VBG HCO3 VBG Base Excess FiO2 3l Sodium Potassium Chloride Carbon Dioxide Anion Gap BUN Creatinine Est GFR ( Amer) Est GFR (Non-Af Amer) Glucose Lactic Acid 1.4 Calcium Magnesium Total Bilirubin AST Alkaline Phosphatase Total Protein Albumin Urine Color YELLOW Urine Appearance SLIGHTLY-CLOUDY Urine pH 6.0 Ur Specific [place] 1.011 Urine Protein NEGATIVE Urine Glucose (UA) NEGATIVE Urine Ketones NEGATIVE Urine Blood SMALL H Urine Nitrite POSITIVE H Ur Leukocyte Esterase LARGE H Urine WBC (Auto) 101 Urine RBC (Auto) 5 05/19/19 05/19/19 05/19/19 02:40 08:46 08:46 WBC 26.7 H RBC 4.28 Hgb 11.4 L Hct 36.1 MCV 84 MCH 26.7 L MCHC 31.7 L RDW 15.1 H Plt Count 212 Seg Neutrophils % Not Reportable Lymphocytes % Not Reportable Monocytes % Not Reportable Eosinophils % Not Reportable Basophils % Not Reportable Absolute Neutrophils Not Reportable Absolute Lymphocytes Not Reportable Absolute Monocytes Not Reportable Absolute Eosinophils Not Reportable Absolute Basophils Not Reportable Carbonic Acid HCO3/H2CO3 Ratio ABG pH ABG pCO2 ABG pO2 ABG HCO3 ABG O2 Saturation ABG Base Excess VBG pH VBG pCO2 VBG HCO3 VBG Base Excess FiO2 Sodium 139.9 140.0 Potassium 3.6 3.5 L Chloride 109 H 108 H Carbon Dioxide 19 L 22 Anion Gap 12 10 BUN 17 17 Creatinine 1.35 H 1.35 H Est GFR ( Amer) 48 L 48 L Est GFR (Non-Af Amer) 40 L 40 L Glucose 145 H 133 H Lactic Acid Calcium 8.5 8.3 L Magnesium 1.3 L Total Bilirubin AST Alkaline Phosphatase Total Protein Albumin Urine Color Urine Appearance Urine pH Ur Specific [place] Urine Protein Urine Glucose (UA) Urine Ketones Urine Blood Urine Nitrite Ur Leukocyte Esterase Urine WBC (Auto) Urine RBC (Auto) 05/19/19 05/19/19 05/19/19 02:40 02:40 08:46 Creatine Kinase 90 113 CK-MB (CK-2) 2.35 Troponin I 0.018 NT-Pro-B Natriuret Pep 2530 H 05/19/19 08:46 Creatine Kinase CK-MB (CK-2) 2.45 Troponin I 0.041 NT-Pro-B Natriuret Pep Impressions: Chest X-Ray 05/18/19 19:39 IMPRESSION: 1. No acute pulmonary process identified. Abdomen/Pelvis CT 05/19/19 00:00 IMPRESSION: No acute process. Chest/Abdomen CTA 05/19/19 02:33 IMPRESSION: 1. No CT evidence to suggest acute or chronic pulmonary embolism, aortic aneurysm or aortic dissection. 2. No evidence of acute intrathoracic disease. 3. Very small hiatal hernia. 4. Elevation of the right hemidiaphragm. Assessment & Plan - Diagnosis (1) Sepsis Qualifiers: Sepsis type: sepsis due to unspecified organism Sepsis acute organ dysfunction status: unspecified Qualified Code(s): A41.9 - Sepsis, unspecified organism Is this a current diagnosis for this admission?: Yes Plan: Negative sepsis Continues to IV cefepime Wait for the culture and sensitivity (2) Urinary tract infection Qualifiers: Urinary tract infection type: site unspecified Is this a current diagnosis for this admission?: Yes Plan: Continues to IV antibiotic (3) Type 2 diabetes mellitus Qualifiers: Diabetes mellitus assisted insulin use: without long term care social worker use Is this a current diagnosis for this admission?: Yes Plan: Is a sliding scale (4) Hypoxia Is this a current diagnosis for this admission?: Yes Plan: CT angiogram is negative's All stable Be asthmatic versus panic attack (5) Tachycardia Is this a current diagnosis for this admission?: Yes Plan: Off the Cardizem drips (6) Hypotension Qualifiers: Hypotension type: unspecified hypotension type Qualified Code(s): I95.9 - Hypotension, unspecified Is this a current diagnosis for this admission?: Yes Plan: Sepsis (7) Hyperlipidemia Qualifiers: Hyperlipidemia type: unspecified Qualified Code(s): E78.5 - Hyperlipidemia, unspecified Is this a current diagnosis for this admission?: Yes - Time Time Spent with patient: 25-34 minutes Medications reviewed and adjusted accordingly: Yes Anticipated discharge: Home Within: Other - Plan Summary Plan Summary: disCussed with the patient's all the test reports Discussed with the cardiology
[2019-05-19] MEDS: METRONIDAZOLE 500 MG/NS RTU 500 MG/100 ML RTUPB IV SCH ×2 (13:09→21:15)
[2019-05-19 15:47] LABS: CREATINE KINASE MB 2.34 ng/mL (<4.55); TROPONIN I 0.031 ng/mL
--- NOTE | 2019-05-19 19:18 | PDOC CONSULTATION ---
Consultation-Blank Consultation: CARDIOLOGY CONSULTATION by Dr. Aranza Gutierres on patient seen at 11:30 AM on 05/19/2019 REASON FOR CONSULTATION: Patient with transient irregular rapid heartbeat? Paroxysmal atrial fibrillation. CONSULT REQUESTING PHYSICIAN: Dr. Cristhian Urena. History OF PRESENT ILLNESS: Patient is a 63-year-old female with known history of diabetes mellitus, hyperlipidemia and asthma admitted with fever of more than 102 F, and mild cough which is nonproductive. The patient denies any symptoms of urinary tract infection, although she has been diagnosed with urinary tract infection and is on IV antibiotics for that. Early this morning the patient had sudden onset of tachypnea shortness of breath without wheezing and was hypoxic. At that time her heart rate was irregular with a rate of about 1 30-1 40. EKG obtained at that time showed a lot of artifact hence is not clear if it is atrial fibrillation with rapid ventricular response versus MFAT versus sinus tachycardia with frequent APCs. The patient was started on a Cardizem drip. At present she is in sinus rhythm and is off the Cardizem drip. The patient on questioning states that she has a history of palpitations off and on. She also states her asthmatic attack she just gets short of breath without wheezing. There is no chest pain or discomfort. There is no PND orthopnea or leg edema. She denies any history of coronary artery disease or congestive heart failure. There is no documented atrial fibrillation in the past, although she claims history of palpitations off and on. There is no TIA CVA symptoms. Past Medical History Cardiac Medical History: Denies hypertension or coronary artery disease or congestive heart failure. No history of cardiac arrhythmias. No history of syncope. Pulmonary Medical History: Reports: Asthma, and describes asthmatic attack as sudden onset of shortness of breath without any audible wheezing.. No history of pulmonary embolism. No history of chronic obstructive pulmonary disease. No history of sleep apnea. Endocrine Medical History: Reports: Diabetes Mellitus Type 2. No history of thyroid disease. GI Medical History: History of GERD present. No history of GI bleed. Musculoskeltal Medical History: Reports: Arthritis, Gout. There is no history of collagen vascular disease. Psychiatric Medical History: Denies: Depression. Denies anxiety. RENAL: No history of chronic kidney disease.. No history of TIA CVA. Hematology: Denies: Anemia, Sickle Cell Disease Past Surgical History Past Surgical History: Reports: Orthopedic Surgery - left finger, shoulder, right ankle, left 3rd finger Denies: Amputation, Pacemaker Social History Information Source: Patient Smoking Status: Never Smoker Frequency of Alcohol Use: None Hx Recreational Drug Use: No Drugs: None Hx Prescription Drug Abuse: No Family History Family History: The patient is adopted. Is negaitive for hypertension and coronary artery disease in her biological parents. There is cancer present. RESUSCITATION STATUS: The patient is a full code. Her [id number] is her surrogate healthcare decision maker. Medication/Allergy Home Medications: Alendronate Sodium [Fosamax 10 Mg Tablet] 10 mg PO ASDIR PRN 11/16/12 Fluticasone Propionate [Flovent Hfa] 12 gm IH ASDIR PRN 11/16/12 Diazepam 5 mg PO BID PRN 07/02/15 Gabapentin 300 mg PO QHS 07/02/15 Meclizine HCl 12.5 mg PO BID PRN 07/02/15 Naproxen Sodium [Aleve] 220 mg PO Q6H PRN 07/02/15 Ondansetron [Zofran Odt 4 mg Tablet] 4 mg PO BID PRN 07/02/15 Solifenacin Succinate [Vesicare] 5 mg PO DAILY 07/02/15 Indomethacin [Indocin 50 mg Capsule] 50 mg PO BID #30 capsule 03/13/18 Albuterol Sulfate [Proair HFA Inhalation Aerosol 8.5 gm MDI] 2 puff IH Q4H PRN #1 mdi 03/27/18 Prednisone [Deltasone 20 mg Tablet] 2 tab PO DAILY 5 Days #10 tablet 03/27/18 Indomethacin [Indocin 25 mg Capsule] 25 mg PO ASDIR PRN #30 capsule 10/22/18 Allergies/Adverse Reactions: allopurinol [Allopurinol] Allergy (Verified 05/18/19 19:37) celecoxib [From Celebrex] Allergy (Verified 05/18/19 19:37) ibuprofen [Ibuprofen] Allergy (Verified 05/18/19 19:37) Lactase [From Dairy Ease] Allergy (Verified 05/18/19 19:37) nickel [Nickel] Allergy (Verified 05/18/19 19:37) dairy Allergy (Uncoded 05/18/19 19:37) Review of Systems Constitutional: PRESENT: fever(s). ABSENT: headache(s), weight gain, weight loss Eyes: ABSENT: visual disturbances Ears: ABSENT: hearing changes Cardiovascular: ABSENT: chest pain, dyspnea on exertion, edema, orthropnea, palpitations Respiratory: PRESENT: cough. ABSENT: hemoptysis Gastrointestinal: ABSENT: abdominal pain, constipation, diarrhea, hematemesis, hematochezia, nausea, vomiting Genitourinary: ABSENT: dysuria, hematuria Musculoskeletal: ABSENT: joint swelling Integumentary: ABSENT: rash, wounds Neurological: ABSENT: abnormal gait, abnormal speech, confusion, dizziness, focal weakness, syncope Psychiatric: ABSENT: anxiety, depression, homidical ideation, suicidal ideation Endocrine: ABSENT: cold intolerance, heat intolerance, menstrual abnormalities, polydipsia, polyuria Hematologic/Lymphatic: ABSENT: easy bleeding, easy bruising, lymphadenopathy PHYSICAL EXAMINATION: The patient is well-built and well-nourished. At present in no acute distress. Monitor shows that the patient is in sinus rhythm. With a rate of 62 bpm. 05/19/19 11:56 Temperature 98.2 F Temperature Oral Source Pulse Rate 64 Respiratory 16 Rate Blood Pressure 103/69 Blood Pressure 80 Mean BP Location Right Arm BP Position Sitting O2 Sat by Pulse 95 Oximetry Oxygen Delivery Room Air Method HEAD: Is atraumatic normocephalic. EYES: Pupils equal round regular reactive light accommodation. Extraocular movements are normal. There is no conjunctival pallor. There is no scleral icterus. EARS: Tympanic membranes are intact. External auditory canals are clear. NOSE: There is no deviated nasal septum. There is no inflammation nasal mucous membrane. MOUTH: Mucous membranes of the mouth are moist. Tongue is moist. There is no ulcers. There is no bleeding from the gums. THROAT: There is no redness of the oropharynx. There is no exudates. SKIN: There is no skin rashes or skin lesions. There is no particular ecchymosis. NECK: Is supple. There is no JVD. Carotids are equal there is no bruits. There is no accessory muscles of respiration use. Trachea central. LUNGS: Is clear to auscultation percussion without any rhonchi rales or wheezing. On palpation there is no chest wall tenderness. HEART: S1- S2 is heard. There is no S3 gallop. There is no S4 gallop. There is systolic murmur left sternal border and the apex there is no rub. ABDOMEN: Is soft. There is no hepatospleno megaly. Bowel sounds are well heard. EXTREMITIES: Femorals of well felt. There is no femoral bruits. Leg pulses are well felt. There is no DVT or cellulitis. There is no pedal edema. There is no cyanosis or clubbing. There is no calf tenderness. FISHERIES SPECIALIST: The patient is conscious awake alert oriented x3 with no focal deficits. PSYCHIATRIC: The patient judgment insight are intact her affect is normal. Current Medications Generic Name Dose Route Start Last Admin Trade Name Freq PRN Reason Stop Dose Admin Acetaminophen 650 mg 05/18/19 22:49 05/19/19 16:04 Tylenol 325 Mg Tablet PO 06/17/19 22:48 650 mg Q4HP PRN Administration FOR PAIN OR TEMP Acetaminophen 650 mg 05/19/19 02:44 Tylenol 650 Mg Supp MS 06/18/19 02:43 Q4HP PRN For headache, pain or fever Dextrose 12.5 gm 05/18/19 22:54 Dextrose Inj 50% Syringe (25 Gm/50 Ml) IV 06/17/19 22:53 PRN PRN FOR BG 50-69 IN ALERT PATIENT Protocol Dextrose 25 gm 05/18/19 22:54 Dextrose Inj 50% Syringe (25 Gm/50 Ml) IV 06/17/19 22:53 PRN PRN PER PROTOCOL Protocol Enoxaparin Sodium 40 mg 05/19/19 06:00 05/19/19 17:24 Lovenox Inj 40 Mg/0.4 Ml Disp.Syrin SUBCUT 06/18/19 05:59 40 mg Q12H TONY Administration Famotidine 20 mg 05/18/19 23:00 05/19/19 10:16 Pepcid 20 Mg Tablet PO 06/17/19 22:59 20 mg Q12 TONY Administration Glucagon 1 mg 05/18/19 22:54 Glucagen Inj 1 Mg Vial IM 06/17/19 22:53 PRN PRN Evaluate for BG < 70 Protocol Glucose 15 gm 05/18/19 22:54 Glutose 40% Gel 15 Gm Tube PO 06/17/19 22:53 PRN PRN FOR BG 50-69 IN ALERT PATIENT Protocol Glucose 30 gm 05/18/19 22:54 Glutose 40% Gel 15 Gm Tube PO 06/17/19 22:53 PRN PRN FOR BG < 50 IN ALERT PATIENT Protocol Sodium Chloride 1,000 mls @ 100 mls/hr 05/19/19 02:37 05/19/19 13:09 Nacl 0.9% 1000 Ml Iv Soln IV 06/18/19 02:36 100 mls/hr CONTINUOUS PRN Administration THIS MED IS NOT "PRN" Cefepime HCl 2 gm/ Dextrose 50 mls @ 100 mls/hr 05/19/19 10:00 05/19/19 10:54 IV 05/26/19 09:59 Infused Q12 TONY Infusion Metronidazole 500 mg in 100 mls @ 100 mls/hr 05/19/19 14:00 05/19/19 14:10 Flagyl Rtu 500 Mg/Ns 100ml Premix IV 05/26/19 13:59 Infused Q8 [facility] Infusion Insulin Human Lispro 0 - 12 unit 05/19/19 08:00 05/19/19 17:12 Humalog Insulin 100 Unit/1 Ml 3 Ml Vial SUBCUT 06/18/19 07:59 Not Given ACHS [facility] Protocol Ondansetron HCl 4 mg 05/19/19 02:37 Zofran Inj/Pf 4 Mg/2 Ml Sdv IV 06/18/19 02:36 Q6HP PRN FOR NAUSEA/VOMITING Discontinued Medications Generic Name Dose Route Start Last Admin Trade Name Federicoq PRN Reason Stop Dose Admin Acetaminophen 650 mg 05/18/19 21:03 05/18/19 21:08 Tylenol 325 Mg Tablet PO 05/18/19 21:04 650 mg NOW ONE Administration Acetaminophen Confirm 05/18/19 21:17 05/19/19 02:49 Tylenol 325 Mg Tablet Administered 05/18/19 21:18 Not Given Dose 325 mg .ROUTE .STK-MED ONE Diltiazem HCl Confirm 05/19/19 02:08 05/19/19 02:08 Cardizem Inj 25 Mg/5 Ml Vial Administered 05/19/19 02:09 20 mg Dose Administration 25 mg .ROUTE .STK-MED ONE Diltiazem HCl 20 mg 05/19/19 02:45 05/19/19 05:01 Cardizem Inj 25 Mg/5 Ml Vial IV 05/19/19 02:46 Not Given NOW ONE Enoxaparin Sodium 30 mg 05/19/19 10:00 Lovenox Inj 30 Mg/0.3 Ml Disp.Syrin SUBCUT 06/18/19 09:59 DAILY TONY Lactated Ringer's 1,000 mls @ 0 mls/hr 05/18/19 20:42 05/18/19 23:08 Lactated Ringers 1000 Ml Iv Soln IV 05/18/19 20:43 Infused BOLUS ONE Infusion Wide Open Cefepime HCl 2 gm in 50 mls @ 100 mls/hr 05/18/19 21:02 05/18/19 23:07 Maxipime Rtu 2 Gm-D5w 50 Ml Premix Bag IV 05/18/19 21:31 Infused NOW ONE Infusion Cefepime HCl 2 gm in 50 mls @ 100 mls/hr 05/19/19 10:00 Maxipime Rtu 2 Gm-D5w 50 Ml Premix Bag IV 05/26/19 09:59 Q12 TONY Lactated Ringer's 1,000 mls @ 100 mls/hr 05/18/19 22:49 05/19/19 02:30 Lactated Ringers 1000 Ml Iv Soln IV 06/17/19 22:48 Infused CONTINUOUS PRN Infusion THIS MED IS NOT "PRN" Diltiazem HCl Confirm 05/19/19 02:14 05/19/19 05:47 Cardizem Rtu Inj 125 Mg-D5w 125 Ml Premix Administered 05/19/19 02:15 Infused Dose Infusion 125 mg in 125 mls @ ud IV .STK-MED ONE Diltiazem HCl 125 mg in 125 mls @ 0 mls/hr 05/19/19 02:38 Cardizem Rtu Inj 125 Mg-D5w 125 Ml Premix IV 06/18/19 02:37 CONTINUOUS PRN THIS MED IS NOT "PRN" Protocol Titrate Magnesium Sulfate/Dextrose 1 gm in 100 mls @ 100 mls/hr 05/19/19 04:30 05/19/19 05:48 Magnesium Sulfate Rtu-D5w 1 Gm/100 Ml Premix IV 05/19/19 05:29 Infused NOW ONE Infusion Metoprolol Tartrate Confirm 05/19/19 01:52 05/19/19 02:49 Lopressor 25 Mg Tablet Administered 05/19/19 01:53 Not Given Dose 25 mg .ROUTE .STK-MED ONE Metoprolol Tartrate 12.5 mg 05/19/19 02:00 05/19/19 02:49 Lopressor 25 Mg Tablet PO 05/19/19 02:01 Not Given NOW ONE Ondansetron HCl Confirm 05/19/19 02:06 05/19/19 02:07 Zofran Inj/Pf 4 Mg/2 Ml Sdv Administered 05/19/19 02:07 4 mg Dose Administration 4 mg .ROUTE .STK-MED ONE Vancomycin HCl 1,000 mg 05/18/19 21:02 05/18/19 22:18 Vancocin Inj 1000 Mg Vial IV 05/18/19 21:03 1,000 mg NOW ONE Administration Labs- All tests 24 hr 05/18/19 05/18/19 05/18/19 19:50 19:50 20:20 WBC 20.4 H RBC 4.83 Hgb 13.2 Hct 40.5 MCV 84 MCH 27.2 MCHC 32.5 RDW 15.1 H Plt Count 279 Total Counted 100 Seg Neutrophils % Not Reportable Seg Neuts % (Manual) 83 H Band Neutrophils % 1 L Lymphocytes % Not Reportable Lymphocytes % (Manual) 7 L Atypical Lymphs % 1 Monocytes % Not Reportable Monocytes % (Manual) 8 Eosinophils % Not Reportable Eosinophils % (Manual) 0 Basophils % Not Reportable Basophils % (Manual) 0 Absolute Neutrophils Not Reportable Abs Neuts (Manual) 17.1 H Absolute Lymphocytes Not Reportable Abs Lymphs (Manual) 1.6 Absolute Monocytes Not Reportable Abs Monocytes (Manual) 1.6 H Absolute Eosinophils Not Reportable Absolute Eos (Manual) 0.0 Absolute Basophils Not Reportable Abs Basophils (Manual) 0.0 Platelet Comment ADEQUATE Polychromasia SLIGHT Hypochromasia 1+ Anisocytosis 1+ Carbonic Acid HCO3/H2CO3 Ratio ABG pH ABG pCO2 ABG pO2 ABG HCO3 ABG Total CO2 ABG O2 Saturation ABG Base Excess VBG pH 7.40 VBG pCO2 34.6 L VBG HCO3 21.0 VBG Base Excess -3.1 FiO2 Sodium 139.4 Potassium 3.6 Chloride 106 Carbon Dioxide 22 Anion Gap 11 BUN 18 Creatinine 1.41 H Est GFR ( Amer) 46 L Est GFR (Non-Af Amer) 38 L Glucose 130 H POC Glucose Lactic Acid Calcium 9.1 Magnesium Total Bilirubin 1.1 Direct Bilirubin 0.3 Neonat Total Bilirubin Not Reportable Neonat Direct Bilirubin Not Reportable Neonat Indirect Bili Not Reportable AST 33 ALT 17 Alkaline Phosphatase 78 Creatine Kinase CK-MB (CK-2) Troponin I NT-Pro-B Natriuret Pep Total Protein 7.4 Albumin 4.0 Urine Color Urine Appearance Urine pH Ur Specific [place] Urine Protein Urine Glucose (UA) Urine Ketones Urine Blood Urine Nitrite Urine Bilirubin Urine Urobilinogen Ur Leukocyte Esterase Urine WBC (Auto) Urine RBC (Auto) U Hyaline Cast (Auto) Urine Bacteria (Auto) Urine WBC Clumps Squamous Epi Cells Auto Urine Mucus (Auto) Urine Ascorbic Acid 05/18/19 05/18/19 05/19/19 20:20 22:05 02:30 WBC RBC Hgb Hct MCV MCH MCHC RDW Plt Count Total Counted Seg Neutrophils % Seg Neuts % (Manual) Band Neutrophils % Lymphocytes % Lymphocytes % (Manual) Atypical Lymphs % Monocytes % Monocytes % (Manual) Eosinophils % Eosinophils % (Manual) Basophils % Basophils % (Manual) Absolute Neutrophils Abs Neuts (Manual) Absolute Lymphocytes Abs Lymphs (Manual) Absolute Monocytes Abs Monocytes (Manual) Absolute Eosinophils Absolute Eos (Manual) Absolute Basophils Abs Basophils (Manual) Platelet Comment Polychromasia Hypochromasia Anisocytosis Carbonic Acid 0.82 L HCO3/H2CO3 Ratio 22:1 ABG pH 7.44 ABG pCO2 27.4 L ABG pO2 108.1 H ABG HCO3 18.1 L ABG Total CO2 18.9 L ABG O2 Saturation 98.2 H ABG Base Excess -4.6 VBG pH VBG pCO2 VBG HCO3 VBG Base Excess FiO2 3l Sodium Potassium Chloride Carbon Dioxide Anion Gap BUN Creatinine Est GFR ( Amer) Est GFR (Non-Af Amer) Glucose POC Glucose Lactic Acid 1.4 Calcium Magnesium Total Bilirubin Direct Bilirubin Neonat Total Bilirubin Neonat Direct Bilirubin Neonat Indirect Bili AST ALT Alkaline Phosphatase Creatine Kinase CK-MB (CK-2) Troponin I NT-Pro-B Natriuret Pep Total Protein Albumin Urine Color YELLOW Urine Appearance SLIGHTLY-CLOUDY Urine pH 6.0 Ur Specific [place] 1.011 Urine Protein NEGATIVE Urine Glucose (UA) NEGATIVE Urine Ketones NEGATIVE Urine Blood SMALL H Urine Nitrite POSITIVE H Urine Bilirubin NEGATIVE Urine Urobilinogen NEGATIVE Ur Leukocyte Esterase LARGE H Urine WBC (Auto) 101 Urine RBC (Auto) 5 U Hyaline Cast (Auto) 1 Urine Bacteria (Auto) 3+ Urine WBC Clumps FEW Squamous Epi Cells Auto <1 Urine Mucus (Auto) RARE Urine Ascorbic Acid NEGATIVE 08/11/19 08/11/19 08/11/19 02:40 02:40 07:41 WBC RBC Hgb Hct MCV MCH MCHC RDW Plt Count Total Counted Seg Neutrophils % Seg Neuts % (Manual) Band Neutrophils % Lymphocytes % Lymphocytes % (Manual) Atypical Lymphs % Monocytes % Monocytes % (Manual) Eosinophils % Eosinophils % (Manual) Basophils % Basophils % (Manual) Absolute Neutrophils Abs Neuts (Manual) Absolute Lymphocytes Abs Lymphs (Manual) Absolute Monocytes Abs Monocytes (Manual) Absolute Eosinophils Absolute Eos (Manual) Absolute Basophils Abs Basophils (Manual) Platelet Comment Polychromasia Hypochromasia Anisocytosis Carbonic Acid HCO3/H2CO3 Ratio ABG pH ABG pCO2 ABG pO2 ABG HCO3 ABG Total CO2 ABG O2 Saturation ABG Base Excess VBG pH VBG pCO2 VBG HCO3 VBG Base Excess FiO2 Sodium 139.9 Potassium 3.6 Chloride 109 H Carbon Dioxide 19 L Anion Gap 12 BUN 17 Creatinine 1.35 H Est GFR ( Amer) 48 L Est GFR (Non-Af Amer) 40 L Glucose 145 H POC Glucose 121 H Lactic Acid Calcium 8.5 Magnesium 1.3 L Total Bilirubin Direct Bilirubin Neonat Total Bilirubin Neonat Direct Bilirubin Neonat Indirect Bili AST ALT Alkaline Phosphatase Creatine Kinase 90 CK-MB (CK-2) 2.35 Troponin I 0.018 NT-Pro-B Natriuret Pep 2530 H Total Protein Albumin Urine Color Urine Appearance Urine pH Ur Specific [place] Urine Protein Urine Glucose (UA) Urine Ketones Urine Blood Urine Nitrite Urine Bilirubin Urine Urobilinogen Ur Leukocyte Esterase Urine WBC (Auto) Urine RBC (Auto) U Hyaline Cast (Auto) Urine Bacteria (Auto) Urine WBC Clumps Squamous Epi Cells Auto Urine Mucus (Auto) Urine Ascorbic Acid 05/19/19 05/19/19 05/19/19 08:46 08:46 08:46 WBC 26.7 H RBC 4.28 Hgb 11.4 L Hct 36.1 MCV 84 MCH 26.7 L MCHC 31.7 L RDW 15.1 H Plt Count 212 Total Counted 100 Seg Neutrophils % Not Reportable Seg Neuts % (Manual) 92 H Band Neutrophils % Lymphocytes % Not Reportable Lymphocytes % (Manual) 6 L Atypical Lymphs % Monocytes % Not Reportable Monocytes % (Manual) 2 L Eosinophils % Not Reportable Eosinophils % (Manual) 0 Basophils % Not Reportable Basophils % (Manual) 0 Absolute Neutrophils Not Reportable Abs Neuts (Manual) 24.6 H Absolute Lymphocytes Not Reportable Abs Lymphs (Manual) 1.6 Absolute Monocytes Not Reportable Abs Monocytes (Manual) 0.5 Absolute Eosinophils Not Reportable Absolute Eos (Manual) 0.0 Absolute Basophils Not Reportable Abs Basophils (Manual) 0.0 Platelet Comment ADEQUATE Polychromasia Hypochromasia Anisocytosis SLIGHT Carbonic Acid HCO3/H2CO3 Ratio ABG pH ABG pCO2 ABG pO2 ABG HCO3 ABG Total CO2 ABG O2 Saturation ABG Base Excess VBG pH VBG pCO2 VBG HCO3 VBG Base Excess FiO2 Sodium 140.0 Potassium 3.5 L Chloride 108 H Carbon Dioxide 22 Anion Gap 10 BUN 17 Creatinine 1.35 H Est GFR ( Amer) 48 L Est GFR (Non-Af Amer) 40 L Glucose 133 H POC Glucose Lactic Acid Calcium 8.3 L Magnesium Total Bilirubin Direct Bilirubin Neonat Total Bilirubin Neonat Direct Bilirubin Neonat Indirect Bili AST ALT Alkaline Phosphatase Creatine Kinase 113 CK-MB (CK-2) Troponin I NT-Pro-B Natriuret Pep Total Protein Albumin Urine Color Urine Appearance Urine pH Ur Specific [place] Urine Protein Urine Glucose (UA) Urine Ketones Urine Blood Urine Nitrite Urine Bilirubin Urine Urobilinogen Ur Leukocyte Esterase Urine WBC (Auto) Urine RBC (Auto) U Hyaline Cast (Auto) Urine Bacteria (Auto) Urine WBC Clumps Squamous Epi Cells Auto Urine Mucus (Auto) Urine Ascorbic Acid 05/19/19 05/19/19 05/19/19 08:46 11:58 15:00 WBC RBC Hgb Hct MCV MCH MCHC RDW Plt Count Total Counted Seg Neutrophils % Seg Neuts % (Manual) Band Neutrophils % Lymphocytes % Lymphocytes % (Manual) Atypical Lymphs % Monocytes % Monocytes % (Manual) Eosinophils % Eosinophils % (Manual) Basophils % Basophils % (Manual) Absolute Neutrophils Abs Neuts (Manual) Absolute Lymphocytes Abs Lymphs (Manual) Absolute Monocytes Abs Monocytes (Manual) Absolute Eosinophils Absolute Eos (Manual) Absolute Basophils Abs Basophils (Manual) Platelet Comment Polychromasia Hypochromasia Anisocytosis Carbonic Acid HCO3/H2CO3 Ratio ABG pH ABG pCO2 ABG pO2 ABG HCO3 ABG Total CO2 ABG O2 Saturation ABG Base Excess VBG pH VBG pCO2 VBG HCO3 VBG Base Excess FiO2 Sodium Potassium Chloride Carbon Dioxide Anion Gap BUN Creatinine Est GFR ( Amer) Est GFR (Non-Af Amer) Glucose POC Glucose 107 Lactic Acid Calcium Magnesium Total Bilirubin Direct Bilirubin Neonat Total Bilirubin Neonat Direct Bilirubin Neonat Indirect Bili AST ALT Alkaline Phosphatase Creatine Kinase 125 CK-MB (CK-2) 2.45 Troponin I 0.041 NT-Pro-B Natriuret Pep Total Protein Albumin Urine Color Urine Appearance Urine pH Ur Specific [place] Urine Protein Urine Glucose (UA) Urine Ketones Urine Blood Urine Nitrite Urine Bilirubin Urine Urobilinogen Ur Leukocyte Esterase Urine WBC (Auto) Urine RBC (Auto) U Hyaline Cast (Auto) Urine Bacteria (Auto) Urine WBC Clumps Squamous Epi Cells Auto Urine Mucus (Auto) Urine Ascorbic Acid 05/19/19 05/19/19 15:00 16:02 WBC RBC Hgb Hct MCV MCH MCHC RDW Plt Count Total Counted Seg Neutrophils % Seg Neuts % (Manual) Band Neutrophils % Lymphocytes % Lymphocytes % (Manual) Atypical Lymphs % Monocytes % Monocytes % (Manual) Eosinophils % Eosinophils % (Manual) Basophils % Basophils % (Manual) Absolute Neutrophils Abs Neuts (Manual) Absolute Lymphocytes Abs Lymphs (Manual) Absolute Monocytes Abs Monocytes (Manual) Absolute Eosinophils Absolute Eos (Manual) Absolute Basophils Abs Basophils (Manual) Platelet Comment Polychromasia Hypochromasia Anisocytosis Carbonic Acid HCO3/H2CO3 Ratio ABG pH ABG pCO2 ABG pO2 ABG HCO3 ABG Total CO2 ABG O2 Saturation ABG Base Excess VBG pH VBG pCO2 VBG HCO3 VBG Base Excess FiO2 Sodium Potassium Chloride Carbon Dioxide Anion Gap BUN Creatinine Est GFR ( Amer) Est GFR (Non-Af Amer) Glucose POC Glucose 95 Lactic Acid Calcium Magnesium Total Bilirubin Direct Bilirubin Neonat Total Bilirubin Neonat Direct Bilirubin Neonat Indirect Bili AST ALT Alkaline Phosphatase Creatine Kinase CK-MB (CK-2) 2.34 Troponin I 0.031 NT-Pro-B Natriuret Pep Total Protein Albumin Urine Color Urine Appearance Urine pH Ur Specific [place] Urine Protein Urine Glucose (UA) Urine Ketones Urine Blood Urine Nitrite Urine Bilirubin Urine Urobilinogen Ur Leukocyte Esterase Urine WBC (Auto) Urine RBC (Auto) U Hyaline Cast (Auto) Urine Bacteria (Auto) Urine WBC Clumps Squamous Epi Cells Auto Urine Mucus (Auto) Urine Ascorbic Acid Chest X-Ray 05/18/19 19:39 IMPRESSION: 1. No acute pulmonary process identified. Abdomen/Pelvis CT 05/19/19 00:00 IMPRESSION: No acute process. Chest/Abdomen CTA 05/19/19 02:33 IMPRESSION: 1. No CT evidence to suggest acute or chronic pulmonary embolism, aortic aneurysm or aortic dissection. 2. No evidence of acute intrathoracic disease. 3. Very small hiatal hernia. 4. Elevation of the right hemidiaphragm. EKG: There is baseline severe artifact. Atrial fibrillation with rapid ventricular response versus artifact and the sinus tachycardia with APCs versus multifocal atrial tachycardia. Monitor shows sinus rhythm. There is no evidence of atrial fibrillation on the monitor. IMPRESSION/recommendation: 1. Episode of tachycardia: Transient paroxysmal atrial fibrillation versus multifocal atrial tachycardia versus sinus tachycardia with APCs. The baseline artifact precludes making exact diagnosis. At present patient is in sinus rhythm with a heart rate in 60s. Hence will observe the patient for any recurrence of tachyarrhythmia. Of note the patient had an episode of tachypnea and shortness of breath causing tachycardia. This is positive palpable probably a physical physiological response to a pathological process. 2. Sudden episode of shortness of breath with tachypnea and hypoxemia most likely an acute asthmatic attack. Would recommend anti-asthma inhalation. 3. Fever with work-up showing signs of urinary tract infection: Continue a ntibiotics. 4. History of diabetes mellitus type 2: Continue antidiabetic regimen and Accu- Cheks. 5. Systolic murmur: Most likely mitral regurgitation.? Severity. No evidence of aortic stenosis by clinical exam. 6. Arthritis/gout: At present no acute flareup. Medications reviewed management plan discussed with Dr. Urena. Medical decision making is of moderate to high complexity. 60 minutes spent on this patient with more than 50% of time spent in direct patient care. Will follow. Later would recommend that the patient an outpatient have an echocardiogram and a IV Lexiscan Cardiolite stress test in view of the patient's CAD risk factors namely age, family history being positive for CAD, and hyperlipidemia, and diabetes mellitus. Cardiac status is stable will sign off. The patient has expressed her wishes to follow-up with me as an outpatient. Will make arrangements. The patient given my contact numbers to call if in case she should have any problems.
[2019-05-19 21:32] LABS: CREATINE KINASE MB 2.07 ng/mL (<4.55); TROPONIN I 0.025 ng/mL
[2019-05-20] MEDS: ACETAMINOPHEN 325 MG TABLET PO PRN ×2 (05:29→23:40)
[2019-05-20] MEDS: ENOXAPARIN SODIUM INJ 40 MG/0.4 ML DISP.SYRIN SUBCUT SCH ×2 (05:30→18:48)
[2019-05-20] MEDS: METRONIDAZOLE 500 MG/NS RTU 500 MG/100 ML RTUPB IV SCH ×3 (05:30→22:45)
--- NOTE | 2019-05-20 06:42 | EKG REPORT ---
SEVERITY:- ABNORMAL ECG - SINUS RHYTHM ATRIAL PREMATURE COMPLEX NONSPECIFIC IVCD WITH LAD : Confirmed by: Yung Stover MD 20-May-2019 06:41:21
[2019-05-20 07:20] LABS: ABSOLUTE EOSINOPHILS # (AUTO) 0.1 10^3/uL (0.0-0.6); ABSOLUTE LYMPHOCYTES (AUTO) 1.1 10^3/uL (0.5-4.7); ABSOLUTE NEUT (AUTO) 12.6 10^3/uL (1.7-8.2); BASOPHILS % (AUTO) 0.2 % (0-2); EOSINOPHILS % (AUTO) 0.7 % (0-6); HEMATOCRIT 33.8 % (36.0-47.0); HEMOGLOBIN 10.8 g/dL (12.0-15.5); LYMPHOCYTES % (AUTO) 7.6 % (13-45); MEAN CORPUSCULAR HEMOGLOBIN 27.1 pg (27.0-33.4); MEAN CORPUSCULAR VOLUME 85 fl (80-97); PLATELET COUNT 192 10^3/uL (150-450); RED CELL DISTRIBUTION WIDTH 14.8 % (11.5-14.0); SEGMENTED NEUTROPHILS % (AUTO) 84.5 % (42-78); TOTAL CELLS COUNTED % (AUTO) 100 %; WHITE BLOOD COUNT 14.9 10^3/uL (4.0-10.5)
[2019-05-20 07:44] LABS: ALBUMIN 2.5 g/dL (3.5-5.0); ALKALINE PHOSPHATASE 56 U/L (38-126); ANION GAP 10 (5-19); ASPARTATE AMINO TRANSFERASE 21 U/L (14-36); BILIRUBIN,DIRECT 0.5 mg/dL (0.0-0.4); BILIRUBIN,TOTAL 0.8 mg/dL (0.2-1.3); BLOOD UREA NITROGEN 16 mg/dL (7-20); CALCIUM 7.9 mg/dL (8.4-10.2); CARBON DIOXIDE 18 mmol/L (22-30); CHLORIDE 112 mmol/L (98-107); CHOLESTEROL 77.67 mg/dL (0-200); GLUCOSE 94 mg/dL (75-110); POTASSIUM 3.3 mmol/L (3.6-5.0); TRIGLYCERIDES 125 mg/dL (<150)
[2019-05-20 08:07] LABS: DIRECT LDL 43 mg/dL (<100)
[2019-05-20 08:13] LABS: FREE T3 2.53 pg/mL (2.77-5.27); FREE T4 (FREE THYROXINE) 1.52 ng/dL (0.78-2.19)
[2019-05-20] MEDS: INSULIN LISPRO 100 UNIT/ML 3 ML VIAL SUBCUT SCH ×4 (08:23→22:39)
[2019-05-20 08:27] LABS: THYROID STIMULATING HORMONE 1.7 uIU/mL (0.47-4.68)
--- NOTE | 2019-05-20 09:00 | PDOC PROGRESS REPORT ---
Subjective Progress Note for:: 05/20/19 Subjective:: Patient is currently doing much better And any chest pain to than any shortness of the breath Fever is also coming down P.o. intake is fair Reason For Visit: UROSEPSIS Physical Exam Vital Signs: Temp Pulse Resp BP Pulse Ox 98.3 F 72 16 130/80 H 100 05/20/19 07:49 05/20/19 07:49 05/20/19 07:49 05/20/19 07:49 05/20/19 07:49 Intake & Output 05/19/19 05/20/19 05/21/19 06:59 06:59 06:59 Intake Total 1437 2700 Output Total 810 1150 Balance 627 1550 Weight 40.9 kg 42 kg General appearance: PRESENT: no acute distress, well-developed, well-nourished Head exam: PRESENT: atraumatic, normocephalic Eye exam: PRESENT: conjunctiva pink, EOMI, PERRLA. ABSENT: scleral icterus Ear exam: PRESENT: normal external ear exam Mouth exam: PRESENT: moist, tongue midline Neck exam: PRESENT: full ROM. ABSENT: carotid bruit, JVD, lymphadenopathy, thyromegaly Respiratory exam: PRESENT: clear to auscultation nghia Cardiovascular exam: PRESENT: RRR. ABSENT: diastolic murmur, rubs, systolic murmur Pulses: PRESENT: normal dorsalis pedis pul, +2 pedal pulses bilateral Vascular exam: PRESENT: normal capillary refill GI/Abdominal exam: PRESENT: normal bowel sounds, soft. ABSENT: distended, guarding, mass, organolmegaly, rebound, tenderness Rectal exam: PRESENT: deferred Extremities exam: ABSENT: pedal edema Musculoskeletal exam: PRESENT: ambulatory Neurological exam: PRESENT: alert, awake, oriented to person, oriented to place, oriented to time, oriented to situation, CN II-XII grossly intact. ABSENT: motor sensory deficit Psychiatric exam: PRESENT: appropriate affect, normal mood. ABSENT: homicidal ideation, suicidal ideation Skin exam: PRESENT: dry, intact, warm. ABSENT: cyanosis, rash Results Laboratory Results: 05/20/19 07:09 05/20/19 07:09 05/19/19 05/19/19 05/20/19 08:46 08:46 07:09 WBC 26.7 H 14.9 H RBC 4.28 4.00 Hgb 11.4 L 10.8 L Hct 36.1 33.8 L MCV 84 85 MCH 26.7 L 27.1 MCHC 31.7 L 32.0 RDW 15.1 H 14.8 H Plt Count 212 192 Seg Neutrophils % Not Reportable 84.5 H Lymphocytes % Not Reportable 7.6 L Monocytes % Not Reportable 7.0 Eosinophils % Not Reportable 0.7 Basophils % Not Reportable 0.2 Absolute Neutrophils Not Reportable 12.6 H Absolute Lymphocytes Not Reportable 1.1 Absolute Monocytes Not Reportable 1.0 Absolute Eosinophils Not Reportable 0.1 Absolute Basophils Not Reportable 0.0 Sodium 140.0 Potassium 3.5 L Chloride 108 H Carbon Dioxide 22 Anion Gap 10 BUN 17 Creatinine 1.35 H Est GFR ( Amer) 48 L Est GFR (Non-Af Amer) 40 L Glucose 133 H Lactic Acid Calcium 8.3 L Total Bilirubin AST Alkaline Phosphatase Total Protein Albumin Triglycerides Cholesterol LDL Cholesterol Direct VLDL Cholesterol HDL Cholesterol TSH Free T4 Free T3 pg/mL 05/20/19 05/20/19 05/20/19 07:09 07:09 07:09 WBC RBC Hgb Hct MCV MCH MCHC RDW Plt Count Seg Neutrophils % Lymphocytes % Monocytes % Eosinophils % Basophils % Absolute Neutrophils Absolute Lymphocytes Absolute Monocytes Absolute Eosinophils Absolute Basophils Sodium 139.8 Potassium 3.3 L Chloride 112 H Carbon Dioxide 18 L Anion Gap 10 BUN 16 Creatinine 1.28 H Est GFR ( Amer) 51 L Est GFR (Non-Af Amer) 42 L Glucose 94 Lactic Acid 0.7 Calcium 7.9 L Total Bilirubin 0.8 AST 21 Alkaline Phosphatase 56 Total Protein 5.0 L Albumin 2.5 L Triglycerides 125 Cholesterol 77.67 LDL Cholesterol Direct 43 VLDL Cholesterol 25.0 HDL Cholesterol 24 L TSH 1.70 Free T4 1.52 Free T3 pg/mL 2.53 L 05/19/19 05/19/19 05/19/19 02:40 02:40 08:46 Creatine Kinase 90 113 CK-MB (CK-2) 2.35 Troponin I 0.018 NT-Pro-B Natriuret Pep 2530 H 05/19/19 05/19/19 05/19/19 08:46 15:00 15:00 Creatine Kinase 125 CK-MB (CK-2) 2.45 2.34 Troponin I 0.041 0.031 NT-Pro-B Natriuret Pep 05/19/19 05/19/19 20:40 20:40 Creatine Kinase 120 CK-MB (CK-2) 2.07 Troponin I 0.025 NT-Pro-B Natriuret Pep Impressions: Chest X-Ray 05/18/19 19:39 IMPRESSION: 1. No acute pulmonary process identified. Abdomen/Pelvis CT 05/19/19 00:00 IMPRESSION: No acute process. Chest/Abdomen CTA 05/19/19 02:33 IMPRESSION: 1. No CT evidence to suggest acute or chronic pulmonary embolism, aortic aneurysm or aortic dissection. 2. No evidence of acute intrathoracic disease. 3. Very small hiatal hernia. 4. Elevation of the right hemidiaphragm. Assessment & Plan - Diagnosis (1) Sepsis Qualifiers: Sepsis type: sepsis due to unspecified organism Sepsis acute organ dysfunction status: unspecified Qualified Code(s): A41.9 - Sepsis, unspecified organism Is this a current diagnosis for this admission?: Yes Plan: Continues to IV antibiotic which for the sensitivity (2) Urinary tract infection Qualifiers: Urinary tract infection type: site unspecified Is this a current diagnosis for this admission?: Yes Plan: Continues to IV antibiotic (3) Type 2 diabetes mellitus Qualifiers: Diabetes mellitus termite exterminator helper insulin use: without termite exterminator helper use Is this a current diagnosis for this admission?: Yes Plan: Is a sliding scale (4) Hypoxia Is this a current diagnosis for this admission?: Yes Plan: Currently all resolved (5) Tachycardia Is this a current diagnosis for this admission?: Yes Plan: Follow-up with the Dr. Gutierres (6) Hypotension Qualifiers: Hypotension type: unspecified hypotension type Qualified Code(s): I95.9 - Hypotension, unspecified Is this a current diagnosis for this admission?: Yes Plan: Due to the sepsis currently all resolved (7) Hyperlipidemia Qualifiers: Hyperlipidemia type: unspecified Qualified Code(s): E78.5 - Hyperlipidemia, unspecified Is this a current diagnosis for this admission?: Yes - Time Time Spent with patient: 15-24 minutes Medications reviewed and adjusted accordingly: Yes Anticipated discharge: Home Within: Other - Plan Summary Plan Summary: Get the physical therapy evaluation continues to IV antibiotic
[2019-05-20] MEDS: FAMOTIDINE 20 MG TABLET PO SCH ×2 (09:11→22:46)
[2019-05-20] MEDS: NORMAL SALINE 1000 ML 1,000 ML IV PRN (09:11)
[2019-05-20] MEDS: CEFEPIME HCL 2 GM in DEXTROSE 5%-WATER 50 ML IV SCH ×2 (09:11→22:45)
[2019-05-20] MEDS ORDERED: POTASSIUM CHLORIDE 20 MEQ PACKET PO ONE ×2 (09:30→12:00)
--- NOTE | 2019-05-20 19:13 | Progress Note ---
Provider Note Provider Note: CARDIOLOGY PROGRESS NOTE by Dr. ibarra S1 on 05/20/2019. SUBJECTIVE: The patient has no further tachycardic episodes. She denies any palpitations. There is no chest pain or discomfort. There is no PND orthopnea. There is no leg edema. There is no anginal symptoms. There is no TIA CVA symptoms. There is no arrhythmia seen on the monitor. There is no dizziness or near syncope or syncope. PHYSICAL EXAMINATION: The patient is well-built and well-nourished in no acute distress. HEAD: Is atraumatic normocephalic. EYES: Pupils equal round regular reactive light accommodation. Extraocular movements are normal. There is no conjunctival pallor. There is no scleral icterus. EARS: Tympanic membranes are intact. External auditory canals are clear. NOSE: There is no deviated nasal septum. There is no inflammation nasal mucous membrane. MOUTH: Mucous membranes of the mouth are moist. Tongue is moist. There is no ulcers. There is no bleeding from the gums. THROAT: There is no redness of the oropharynx. There is no exudates. SKIN: There is no skin rashes or skin lesions. There is no particular ecchymosis. NECK: Is supple. There is no JVD. Carotids are equal there is no bruits. There is no accessory muscles of respiration use. Trachea central. LUNGS: Is clear to auscultation percussion without any rhonchi rales or wheezing. On palpation there is no chest wall tenderness. HEART: S1- S2 is heard. There is no S3 gallop. There is no S4 gallop. There is systolic murmur left sternal border and the apex there is no rub. ABDOMEN: Is soft. There is no hepatospleno megaly. Bowel sounds are well heard. EXTREMITIES: Femorals of well felt. There is no femoral bruits. Leg pulses are well felt. There is no DVT or cellulitis. There is no pedal edema. There is no cyanosis or clubbing. There is no calf tenderness. FEATHER RENOVATOR: The patient is conscious awake alert oriented x3 with no focal deficits. PSYCHIATRIC: The patient judgment insight are intact her affect is normal. Labs- All tests 24 hr 05/19/19 05/19/19 05/19/19 20:40 20:40 20:56 WBC RBC Hgb Hct MCV MCH MCHC RDW Plt Count Seg Neutrophils % Lymphocytes % Monocytes % Eosinophils % Basophils % Absolute Neutrophils Absolute Lymphocytes Absolute Monocytes Absolute Eosinophils Absolute Basophils Sodium Potassium Chloride Carbon Dioxide Anion Gap BUN Creatinine Est GFR ( Amer) Est GFR (Non-Af Amer) Glucose POC Glucose 121 H Hemoglobin A1c % Lactic Acid Calcium Total Bilirubin Direct Bilirubin Neonat Total Bilirubin Neonat Direct Bilirubin Neonat Indirect Bili AST ALT Alkaline Phosphatase Creatine Kinase 120 CK-MB (CK-2) 2.07 Troponin I 0.025 Total Protein Albumin Triglycerides Cholesterol LDL Cholesterol Direct VLDL Cholesterol HDL Cholesterol TSH Free T4 Free T3 pg/mL C. difficile Tox (PCR) 05/20/19 05/20/19 05/20/19 07:09 07:09 07:09 WBC 14.9 H RBC 4.00 Hgb 10.8 L Hct 33.8 L MCV 85 MCH 27.1 MCHC 32.0 RDW 14.8 H Plt Count 192 Seg Neutrophils % 84.5 H Lymphocytes % 7.6 L Monocytes % 7.0 Eosinophils % 0.7 Basophils % 0.2 Absolute Neutrophils 12.6 H Absolute Lymphocytes 1.1 Absolute Monocytes 1.0 Absolute Eosinophils 0.1 Absolute Basophils 0.0 Sodium 139.8 Potassium 3.3 L Chloride 112 H Carbon Dioxide 18 L Anion Gap 10 BUN 16 Creatinine 1.28 H Est GFR ( Amer) 51 L Est GFR (Non-Af Amer) 42 L Glucose 94 POC Glucose Hemoglobin A1c % 6.0 Lactic Acid Calcium 7.9 L Total Bilirubin 0.8 Direct Bilirubin 0.5 H Neonat Total Bilirubin Not Reportable Neonat Direct Bilirubin Not Reportable Neonat Indirect Bili Not Reportable AST 21 ALT 11 Alkaline Phosphatase 56 Creatine Kinase CK-MB (CK-2) Troponin I Total Protein 5.0 L Albumin 2.5 L Triglycerides 125 Cholesterol 77.67 LDL Cholesterol Direct 43 VLDL Cholesterol 25.0 HDL Cholesterol 24 L TSH Free T4 Free T3 pg/mL C. difficile Tox (PCR) 05/20/19 05/20/19 05/20/19 07:09 07:09 07:50 WBC RBC Hgb Hct MCV MCH MCHC RDW Plt Count Seg Neutrophils % Lymphocytes % Monocytes % Eosinophils % Basophils % Absolute Neutrophils Absolute Lymphocytes Absolute Monocytes Absolute Eosinophils Absolute Basophils Sodium Potassium Chloride Carbon Dioxide Anion Gap BUN Creatinine Est GFR ( Amer) Est GFR (Non-Af Amer) Glucose POC Glucose 83 Hemoglobin A1c % Lactic Acid 0.7 Calcium Total Bilirubin Direct Bilirubin Neonat Total Bilirubin Neonat Direct Bilirubin Neonat Indirect Bili AST ALT Alkaline Phosphatase Creatine Kinase CK-MB (CK-2) Troponin I Total Protein Albumin Triglycerides Cholesterol LDL Cholesterol Direct VLDL Cholesterol HDL Cholesterol TSH 1.70 Free T4 1.52 Free T3 pg/mL 2.53 L C. difficile Tox (PCR) 05/20/19 05/20/19 05/20/19 09:15 11:42 16:21 WBC RBC Hgb Hct MCV MCH MCHC RDW Plt Count Seg Neutrophils % Lymphocytes % Monocytes % Eosinophils % Basophils % Absolute Neutrophils Absolute Lymphocytes Absolute Monocytes Absolute Eosinophils Absolute Basophils Sodium Potassium Chloride Carbon Dioxide Anion Gap BUN Creatinine Est GFR ( Amer) Est GFR (Non-Af Amer) Glucose POC Glucose 86 83 Hemoglobin A1c % Lactic Acid Calcium Total Bilirubin Direct Bilirubin Neonat Total Bilirubin Neonat Direct Bilirubin Neonat Indirect Bili AST ALT Alkaline Phosphatase Creatine Kinase CK-MB (CK-2) Troponin I Total Protein Albumin Triglycerides Cholesterol LDL Cholesterol Direct VLDL Cholesterol HDL Cholesterol TSH Free T4 Free T3 pg/mL C. difficile Tox (PCR) NEGATIVE Chest X-Ray 05/18/19 19:39 IMPRESSION: 1. No acute pulmonary process identified. Abdomen/Pelvis CT 05/19/19 00:00 IMPRESSION: No acute process. Chest/Abdomen CTA 05/19/19 02:33 IMPRESSION: 1. No CT evidence to suggest acute or chronic pulmonary embolism, aortic aneurysm or aortic dissection. 2. No evidence of acute intrathoracic disease. 3. Very small hiatal hernia. 4. Elevation of the right hemidiaphragm. IMPRESSION/recommendation: 1. Episode of tachycardia: Transient paroxysmal atrial fibrillation versus multifocal atrial tachycardia versus sinus tachycardia with APCs. The baseline artifact precludes making exact diagnosis. At present patient is in sinus rhythm with a heart rate in 60s. Hence will observe the patient for any recurrence of tachyarrhythmia. Of note the patient had an episode of tachypnea and shortness of breath causing tachycardia. This is positive palpable probably a physical physiological response to a pathological process. There is been no recurrence of tachycardia or shortness of breath. 2. Sudden episode of shortness of breath with tachypnea and hypoxemia most likely an acute asthmatic attack. Would recommend anti-asthma inhalation. No recurrence of this. 3. Fever with work-up showing signs of urinary tract infection: Continue antibiotics. If he was coming down. Patient improving on antibiotics. 4. History of diabetes mellitus type 2: Continue antidiabetic regimen and Accu- Cheks. 5. Systolic murmur: Most likely mitral regurgitation.? Severity. No evidence of aortic stenosis by clinical exam. 6. Arthritis/gout: At present no acute flareup. Medications reviewed. Medications and management plan was discussed with the attending physician Dr. Urena. Medical decision making is of moderate complexity. Would recommend that the patient have a 30-day event monitor placed after discharge. Also has an outpatient we will get a echocardiogram to assess the patient's LV function is systolic murmur, and also an IV Lexiscan Cardiolite stress test in view of the patient's significant coronary artery disease risk factors. Arctic status is stable. Hence will sign off, as discussed with Dr. Urena.
[2019-05-21] MEDS: ENOXAPARIN SODIUM INJ 40 MG/0.4 ML DISP.SYRIN SUBCUT SCH ×2 (05:27→17:34)
[2019-05-21] MEDS: NORMAL SALINE 1000 ML 1,000 ML IV PRN (05:32)
[2019-05-21] MEDS: METRONIDAZOLE 500 MG/NS RTU 500 MG/100 ML RTUPB IV SCH (05:32)
[2019-05-21 06:21] LABS: ABSOLUTE EOSINOPHILS # (AUTO) 0.3 10^3/uL (0.0-0.6); ABSOLUTE LYMPHOCYTES (AUTO) 0.9 10^3/uL (0.5-4.7); ABSOLUTE MONOCYTES (AUTO) 0.9 10^3/uL (0.1-1.4); ABSOLUTE NEUT (AUTO) 8.6 10^3/uL (1.7-8.2); BASOPHILS % (AUTO) 0.2 % (0-2); EOSINOPHILS % (AUTO) 2.4 % (0-6); HEMATOCRIT 32.8 % (36.0-47.0); HEMOGLOBIN 10.6 g/dL (12.0-15.5); LYMPHOCYTES % (AUTO) 8.5 % (13-45); MEAN CORPUSCULAR HEMOGLOBIN 27.4 pg (27.0-33.4); MEAN CORPUSCULAR HGB CONC 32.3 g/dL (32.0-36.0); MEAN CORPUSCULAR VOLUME 85 fl (80-97); MONOCYTES % (AUTO) 8.1 % (3-13); PLATELET COUNT 208 10^3/uL (150-450); RED BLOOD COUNT 3.87 10^6/uL (3.72-5.28); RED CELL DISTRIBUTION WIDTH 15.2 % (11.5-14.0); SEGMENTED NEUTROPHILS % (AUTO) 80.8 % (42-78); TOTAL CELLS COUNTED % (AUTO) 100 %; WHITE BLOOD COUNT 10.6 10^3/uL (4.0-10.5)
[2019-05-21 06:45] LABS: ANION GAP 10 (5-19); BLOOD UREA NITROGEN 17 mg/dL (7-20); CALCIUM 8.2 mg/dL (8.4-10.2); CARBON DIOXIDE 18 mmol/L (22-30); CHLORIDE 113 mmol/L (98-107); GLUCOSE 74 mg/dL (75-110); POTASSIUM 3.6 mmol/L (3.6-5.0)
[2019-05-21] MEDS: INSULIN LISPRO 100 UNIT/ML 3 ML VIAL SUBCUT SCH ×4 (08:50→21:48)
--- NOTE | 2019-05-21 09:00 | PDOC PROGRESS REPORT ---
Subjective Progress Note for:: 05/21/19 Subjective:: Patient is feeling much better Patient is white count is back to the normal range No chest pain no short of breath Walk with the physical therapy No fever no chills Reason For Visit: UROSEPSIS Physical Exam Vital Signs: Temp Pulse Resp BP Pulse Ox 98.0 F 70 16 133/63 H 99 05/21/19 03:24 05/21/19 03:24 05/21/19 03:24 05/21/19 03:24 05/21/19 03:24 Intake & Output 05/20/19 05/21/19 05/22/19 06:59 06:59 06:59 Intake Total 2700 2883 Output Total 1150 1100 Balance 1550 1783 Weight 42 kg 151.3 kg General appearance: PRESENT: no acute distress, well-developed, well-nourished Head exam: PRESENT: atraumatic, normocephalic Eye exam: PRESENT: conjunctiva pink, EOMI, PERRLA. ABSENT: scleral icterus Ear exam: PRESENT: normal external ear exam Mouth exam: PRESENT: moist, tongue midline Neck exam: PRESENT: full ROM. ABSENT: carotid bruit, JVD, lymphadenopathy, thyromegaly Respiratory exam: PRESENT: clear to auscultation nghia Cardiovascular exam: PRESENT: RRR. ABSENT: diastolic murmur, rubs, systolic murmur Pulses: PRESENT: normal dorsalis pedis pul, +2 pedal pulses bilateral Vascular exam: PRESENT: normal capillary refill GI/Abdominal exam: PRESENT: normal bowel sounds, soft. ABSENT: distended, guarding, mass, organolmegaly, rebound, tenderness Rectal exam: PRESENT: deferred Musculoskeletal exam: PRESENT: ambulatory Neurological exam: PRESENT: alert, awake, oriented to person, oriented to place, oriented to time, oriented to situation, CN II-XII grossly intact. ABSENT: motor sensory deficit Psychiatric exam: PRESENT: appropriate affect, normal mood. ABSENT: homicidal ideation, suicidal ideation Skin exam: PRESENT: dry, intact, warm. ABSENT: cyanosis, rash Results Laboratory Results: 05/21/19 05:58 05/21/19 05:58 05/21/19 05/21/19 05:58 05:58 WBC 10.6 H RBC 3.87 Hgb 10.6 L Hct 32.8 L MCV 85 MCH 27.4 MCHC 32.3 RDW 15.2 H Plt Count 208 Seg Neutrophils % 80.8 H Lymphocytes % 8.5 L Monocytes % 8.1 Eosinophils % 2.4 Basophils % 0.2 Absolute Neutrophils 8.6 H Absolute Lymphocytes 0.9 Absolute Monocytes 0.9 Absolute Eosinophils 0.3 Absolute Basophils 0.0 Sodium 141.4 Potassium 3.6 Chloride 113 H Carbon Dioxide 18 L Anion Gap 10 BUN 17 Creatinine 1.13 Est GFR ( Amer) 59 L Est GFR (Non-Af Amer) 49 L Glucose 74 L Calcium 8.2 L 05/19/19 05/19/19 05/19/19 02:40 02:40 08:46 Creatine Kinase 90 113 CK-MB (CK-2) 2.35 Troponin I 0.018 NT-Pro-B Natriuret Pep 2530 H 05/19/19 05/19/19 05/19/19 08:46 15:00 15:00 Creatine Kinase 125 CK-MB (CK-2) 2.45 2.34 Troponin I 0.041 0.031 NT-Pro-B Natriuret Pep 05/19/19 05/19/19 20:40 20:40 Creatine Kinase 120 CK-MB (CK-2) 2.07 Troponin I 0.025 NT-Pro-B Natriuret Pep Impressions: Chest X-Ray 05/18/19 19:39 IMPRESSION: 1. No acute pulmonary process identified. Abdomen/Pelvis CT 05/19/19 00:00 IMPRESSION: No acute process. Chest/Abdomen CTA 05/19/19 02:33 IMPRESSION: 1. No CT evidence to suggest acute or chronic pulmonary embolism, aortic aneurysm or aortic dissection. 2. No evidence of acute intrathoracic disease. 3. Very small hiatal hernia. 4. Elevation of the right hemidiaphragm. Assessment & Plan - Diagnosis (1) Sepsis Qualifiers: Sepsis type: sepsis due to unspecified organism Sepsis acute organ dysfunction status: unspecified Qualified Code(s): A41.9 - Sepsis, unspecified organism Is this a current diagnosis for this admission?: Yes Plan: Continues to IV antibiotic which for the sensitivity (2) Urinary tract infection Qualifiers: Urinary tract infection type: site unspecified Is this a current diagnosis for this admission?: Yes Plan: Continues to IV antibiotic (3) Type 2 diabetes mellitus Qualifiers: Diabetes mellitus buttermaker helper insulin use: without half-way use Is this a current diagnosis for this admission?: Yes Plan: Is a sliding scale (4) Hypoxia Is this a current diagnosis for this admission?: Yes Plan: Currently all resolved (5) Tachycardia Is this a current diagnosis for this admission?: Yes Plan: Follow-up with the Dr. Gutierres (6) Hypotension Qualifiers: Hypotension type: unspecified hypotension type Qualified Code(s): I95.9 - Hypotension, unspecified Is this a current diagnosis for this admission?: Yes (7) Hyperlipidemia Qualifiers: Hyperlipidemia type: unspecified Qualified Code(s): E78.5 - Hyperlipidemia, unspecified Is this a current diagnosis for this admission?: Yes - Time Time Spent with patient: 15-24 minutes Medications reviewed and adjusted accordingly: Yes Anticipated discharge: Home, Home with Homehealth Within: Other - Plan Summary Plan Summary: DC the Herrera catheter Reduce the IV fluid if the patient's p.o. intake is good Await for culture and sensitivity Continues to physical therapy
[2019-05-21] MEDS: CEFEPIME HCL 2 GM in DEXTROSE 5%-WATER 50 ML IV SCH ×2 (10:52→21:59)
[2019-05-21] MEDS: FAMOTIDINE 20 MG TABLET PO SCH ×2 (10:52→21:58)
[2019-05-21] MEDS: ACETAMINOPHEN 325 MG TABLET PO PRN ×2 (11:00→21:58)
[2019-05-21] MEDS ORDERED: NYSTATIN CREAM 15 GM TP SCH (18:00)
[2019-05-22 05:03] LABS: ABSOLUTE EOSINOPHILS # (AUTO) 0.3 10^3/uL (0.0-0.6); ABSOLUTE LYMPHOCYTES (AUTO) 0.9 10^3/uL (0.5-4.7); ABSOLUTE MONOCYTES (AUTO) 0.9 10^3/uL (0.1-1.4); ABSOLUTE NEUT (AUTO) 7.4 10^3/uL (1.7-8.2); BASOPHILS % (AUTO) 0.3 % (0-2); EOSINOPHILS % (AUTO) 3.4 % (0-6); HEMATOCRIT 33.7 % (36.0-47.0); HEMOGLOBIN 10.7 g/dL (12.0-15.5); LYMPHOCYTES % (AUTO) 9.9 % (13-45); MEAN CORPUSCULAR HEMOGLOBIN 26.9 pg (27.0-33.4); MEAN CORPUSCULAR HGB CONC 31.8 g/dL (32.0-36.0); MEAN CORPUSCULAR VOLUME 85 fl (80-97); MONOCYTES % (AUTO) 9.2 % (3-13); PLATELET COUNT 246 10^3/uL (150-450); RED BLOOD COUNT 3.98 10^6/uL (3.72-5.28); RED CELL DISTRIBUTION WIDTH 15.3 % (11.5-14.0); SEGMENTED NEUTROPHILS % (AUTO) 77.2 % (42-78); TOTAL CELLS COUNTED % (AUTO) 100 %; WHITE BLOOD COUNT 9.6 10^3/uL (4.0-10.5)
[2019-05-22 05:24] LABS: ANION GAP 6 (5-19); BLOOD UREA NITROGEN 17 mg/dL (7-20); CALCIUM 8.5 mg/dL (8.4-10.2); CARBON DIOXIDE 21 mmol/L (22-30); CHLORIDE 115 mmol/L (98-107); GLUCOSE 105 mg/dL (75-110); POTASSIUM 3.8 mmol/L (3.6-5.0)
[2019-05-22] MEDS: ENOXAPARIN SODIUM INJ 40 MG/0.4 ML DISP.SYRIN SUBCUT SCH ×2 (06:04→19:24)
--- NOTE | 2019-05-22 08:32 | PDOC PROGRESS REPORT ---
Subjective Progress Note for:: 05/22/19 Subjective:: Patient is currently doing well except patient is complaining of a rash on the right breast area which patient was complaining of itching Denied any pain Patient with no fever white count is all normal No chest pain no short of breath Reason For Visit: UROSEPSIS Physical Exam Vital Signs: Temp Pulse Resp BP Pulse Ox 97.9 F 71 16 142/71 H 100 05/22/19 03:44 05/22/19 07:00 05/22/19 03:44 05/22/19 03:44 05/22/19 03:44 Intake & Output 05/21/19 05/22/19 05/23/19 06:59 06:59 06:59 Intake Total 2883 1213 Output Total 1100 1550 Balance 1783 -337 Weight 151.3 kg 150 kg General appearance: PRESENT: no acute distress, well-developed, well-nourished Head exam: PRESENT: atraumatic, normocephalic Eye exam: PRESENT: conjunctiva pink, EOMI, PERRLA. ABSENT: scleral icterus Ear exam: PRESENT: normal external ear exam Mouth exam: PRESENT: moist, tongue midline Neck exam: PRESENT: full ROM. ABSENT: carotid bruit, JVD, lymphadenopathy, thyromegaly Respiratory exam: PRESENT: clear to auscultation nghia Cardiovascular exam: PRESENT: RRR. ABSENT: diastolic murmur, rubs, systolic murmur Pulses: PRESENT: normal dorsalis pedis pul, +2 pedal pulses bilateral Vascular exam: PRESENT: normal capillary refill GI/Abdominal exam: PRESENT: normal bowel sounds, soft. ABSENT: distended, guarding, mass, organolmegaly, rebound, tenderness Rectal exam: PRESENT: deferred Musculoskeletal exam: PRESENT: ambulatory Neurological exam: PRESENT: alert, awake, oriented to person, oriented to place, oriented to time, oriented to situation, CN II-XII grossly intact. ABSENT: motor sensory deficit Psychiatric exam: PRESENT: appropriate affect, normal mood. ABSENT: homicidal ideation, suicidal ideation Skin exam: PRESENT: dry, intact, warm. ABSENT: cyanosis, rash Additional comments: Right breast there was a redness below the breasts area is present Results Laboratory Results: 05/22/19 04:45 05/22/19 04:45 05/22/19 05/22/19 04:45 04:45 WBC 9.6 RBC 3.98 Hgb 10.7 L Hct 33.7 L MCV 85 MCH 26.9 L MCHC 31.8 L RDW 15.3 H Plt Count 246 Seg Neutrophils % 77.2 Lymphocytes % 9.9 L Monocytes % 9.2 Eosinophils % 3.4 Basophils % 0.3 Absolute Neutrophils 7.4 Absolute Lymphocytes 0.9 Absolute Monocytes 0.9 Absolute Eosinophils 0.3 Absolute Basophils 0.0 Sodium 142.2 Potassium 3.8 Chloride 115 H Carbon Dioxide 21 L Anion Gap 6 BUN 17 Creatinine 1.15 Est GFR ( Amer) 58 L Est GFR (Non-Af Amer) 48 L Glucose 105 Calcium 8.5 05/18/19 22:05 Herrera Catheter Urine Culture - Final 5,000 col/ml 05/18/19 20:20 Blood Blood Culture - Final Escherichia Coli 05/19/19 05/19/19 05/19/19 02:40 02:40 08:46 Creatine Kinase 90 113 CK-MB (CK-2) 2.35 Troponin I 0.018 NT-Pro-B Natriuret Pep 2530 H 05/19/19 05/19/19 05/19/19 08:46 15:00 15:00 Creatine Kinase 125 CK-MB (CK-2) 2.45 2.34 Troponin I 0.041 0.031 NT-Pro-B Natriuret Pep 05/19/19 05/19/19 20:40 20:40 Creatine Kinase 120 CK-MB (CK-2) 2.07 Troponin I 0.025 NT-Pro-B Natriuret Pep Impressions: Chest X-Ray 05/18/19 19:39 IMPRESSION: 1. No acute pulmonary process identified. Abdomen/Pelvis CT 05/19/19 00:00 IMPRESSION: No acute process. Chest/Abdomen CTA 05/19/19 02:33 IMPRESSION: 1. No CT evidence to suggest acute or chronic pulmonary embolism, aortic aneurysm or aortic dissection. 2. No evidence of acute intrathoracic disease. 3. Very small hiatal hernia. 4. Elevation of the right hemidiaphragm. Assessment & Plan - Diagnosis (1) Sepsis Qualifiers: Sepsis type: sepsis due to unspecified organism Sepsis acute organ dysfunct ion status: unspecified Qualified Code(s): A41.9 - Sepsis, unspecified organism Is this a current diagnosis for this admission?: Yes Plan: Positive E. coli in the blood sensitive to the cefepime currently all better may be a consider p.o. Cipro on discharge (2) Urinary tract infection Qualifiers: Urinary tract infection type: site unspecified Is this a current diagnosis for this admission?: Yes Plan: Continues to IV antibiotic (3) Type 2 diabetes mellitus Qualifiers: Diabetes mellitus alf insulin use: without emt intermediate use Is this a current diagnosis for this admission?: Yes Plan: Is a sliding scale (4) Hypoxia Is this a current diagnosis for this admission?: Yes Plan: Currently all resolved (5) Tachycardia Is this a current diagnosis for this admission?: Yes (6) Hypotension Qualifiers: Hypotension type: unspecified hypotension type Qualified Code(s): I95.9 - Hypotension, unspecified Is this a current diagnosis for this admission?: Yes (7) Hyperlipidemia Qualifiers: Hyperlipidemia type: unspecified Qualified Code(s): E78.5 - Hyperlipidemia, unspecified Is this a current diagnosis for this admission?: Yes (8) Rash Is this a current diagnosis for this admission?: Yes Plan: Is likely candidiasis with some dermatitis - Time Time Spent with patient: 15-24 minutes Medications reviewed and adjusted accordingly: Yes Anticipated discharge: Home Within: within 24 hours - Plan Summary Plan Summary: Continues to current medications
[2019-05-22] MEDS: INSULIN LISPRO 100 UNIT/ML 3 ML VIAL SUBCUT SCH ×4 (08:36→21:33)
[2019-05-22] MEDS: FAMOTIDINE 20 MG TABLET PO SCH ×2 (09:47→21:41)
[2019-05-22] MEDS: VALACYCLOVIR HCL 500 MG TABLET PO SCH ×2 (09:48→21:40)
[2019-05-22] MEDS: CEFEPIME HCL 2 GM in DEXTROSE 5%-WATER 50 ML IV SCH ×2 (09:48→21:40)
[2019-05-22] MEDS: CLOTRIMAZOLE/BETAMETHASONE DIP CREAM 15 GM TOP SCH ×2 (09:48→19:24)
[2019-05-22] MEDS: GABAPENTIN 300 MG CAPSULE PO SCH (21:40)
[2019-05-22] MEDS: ACETAMINOPHEN 325 MG TABLET PO PRN (21:40)
[2019-05-23] MEDS: ENOXAPARIN SODIUM INJ 40 MG/0.4 ML DISP.SYRIN SUBCUT SCH ×2 (05:34→17:49)
[2019-05-23 06:51] LABS: ANION GAP 8 (5-19); BLOOD UREA NITROGEN 14 mg/dL (7-20); CALCIUM 8.7 mg/dL (8.4-10.2); CARBON DIOXIDE 21 mmol/L (22-30); CHLORIDE 114 mmol/L (98-107); GLUCOSE 98 mg/dL (75-110); POTASSIUM 3.9 mmol/L (3.6-5.0)
[2019-05-23] MEDS: INSULIN LISPRO 100 UNIT/ML 3 ML VIAL SUBCUT SCH ×4 (09:28→21:33)
[2019-05-23] MEDS: CEFEPIME HCL 2 GM in DEXTROSE 5%-WATER 50 ML IV SCH (09:36)
[2019-05-23] MEDS: CLOTRIMAZOLE/BETAMETHASONE DIP CREAM 15 GM TOP SCH ×2 (09:37→17:50)
[2019-05-23] MEDS: VALACYCLOVIR HCL 500 MG TABLET PO SCH ×3 (09:37→21:36)
[2019-05-23] MEDS: FAMOTIDINE 20 MG TABLET PO SCH ×2 (09:40→21:36)
--- NOTE | 2019-05-23 13:26 | PDOC PROGRESS REPORT ---
Subjective Progress Note for:: 05/23/19 Subjective:: Patient is feeling much better Patient's address is also improving some questionable single versus the candidiasis start on Valtrex Patient's having no fever no chills Blood pressure is elevated Reason For Visit: UROSEPSIS Physical Exam Vital Signs: Temp Pulse Resp BP Pulse Ox 97.6 F 65 18 176/90 H 98 05/23/19 11:44 05/23/19 11:44 05/23/19 11:44 05/23/19 11:44 05/23/19 11:44 Intake & Output 05/22/19 05/23/19 05/24/19 06:59 06:59 06:59 Intake Total 1213 441 Output Total 1550 1800 Balance -337 -1359 Weight 150 kg 83.8 kg General appearance: PRESENT: no acute distress, well-developed, well-nourished Head exam: PRESENT: atraumatic, normocephalic Eye exam: PRESENT: conjunctiva pink, EOMI, PERRLA. ABSENT: scleral icterus Ear exam: PRESENT: normal external ear exam Mouth exam: PRESENT: moist, tongue midline Neck exam: PRESENT: full ROM. ABSENT: carotid bruit, JVD, lymphadenopathy, thyromegaly Respiratory exam: PRESENT: clear to auscultation nghia Cardiovascular exam: PRESENT: RRR. ABSENT: diastolic murmur, rubs, systolic murmur Pulses: PRESENT: normal dorsalis pedis pul, +2 pedal pulses bilateral Vascular exam: PRESENT: normal capillary refill GI/Abdominal exam: PRESENT: normal bowel sounds, soft. ABSENT: distended, guarding, mass, organolmegaly, rebound, tenderness Rectal exam: PRESENT: deferred Musculoskeletal exam: PRESENT: ambulatory Neurological exam: PRESENT: alert, awake, oriented to person, oriented to place, oriented to time, oriented to situation, CN II-XII grossly intact. ABSENT: motor sensory deficit Psychiatric exam: PRESENT: appropriate affect, normal mood. ABSENT: homicidal ideation, suicidal ideation Skin exam: PRESENT: dry, intact, warm. ABSENT: cyanosis, rash Additional comments: Erythematous rash on the below the right side of the breast Results Laboratory Results: 05/22/19 04:45 05/23/19 06:06 05/23/19 06:06 Sodium 142.5 Potassium 3.9 Chloride 114 H Carbon Dioxide 21 L Anion Gap 8 BUN 14 Creatinine 0.98 Est GFR ( Amer) > 60 Est GFR (Non-Af Amer) 58 L Glucose 98 Calcium 8.7 05/19/19 05/19/19 05/19/19 02:40 02:40 08:46 Creatine Kinase 90 113 CK-MB (CK-2) 2.35 Troponin I 0.018 NT-Pro-B Natriuret Pep 2530 H 05/19/19 05/19/19 05/19/19 08:46 15:00 15:00 Creatine Kinase 125 CK-MB (CK-2) 2.45 2.34 Troponin I 0.041 0.031 NT-Pro-B Natriuret Pep 05/19/19 05/19/19 20:40 20:40 Creatine Kinase 120 CK-MB (CK-2) 2.07 Troponin I 0.025 NT-Pro-B Natriuret Pep Impressions: Chest X-Ray 05/18/19 19:39 IMPRESSION: 1. No acute pulmonary process identified. Abdomen/Pelvis CT 05/19/19 00:00 IMPRESSION: No acute process. Chest/Abdomen CTA 05/19/19 02:33 IMPRESSION: 1. No CT evidence to suggest acute or chronic pulmonary embolism, aortic aneurysm or aortic dissection. 2. No evidence of acute intrathoracic disease. 3. Very small hiatal hernia. 4. Elevation of the right hemidiaphragm. Assessment & Plan - Diagnosis (1) Sepsis Qualifiers: Sepsis type: sepsis due to unspecified organism Sepsis acute organ dysfunction status: unspecified Qualified Code(s): A41.9 - Sepsis, unspecified organism Is this a current diagnosis for this admission?: Yes Plan: Start the p.o. Levaquin (2) Urinary tract infection Qualifiers: Urinary tract infection type: site unspecified Is this a current diagnosis for this admission?: Yes Plan: Start on a p.o. 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 daily (7) Hyperlipidemia Qualifiers: Hyperlipidemia type: unspecified Qualified Code(s): E78.5 - Hyperlipidemia, unspecified Is this a current diagnosis for this admission?: Yes (8) Rash Is this a current diagnosis for this admission?: Yes Plan: Continues to Valtrex and the Lotrisone cream patient is improving - Time Time Spent with patient: 25-34 minutes Medications reviewed and adjusted accordingly: Yes Anticipated discharge: Home with Homehealth Within: Other - Plan Summary Plan Summary: If the patient is remained stable by p.o. medications hopefully discharge tomorrow at home with home health
[2019-05-23] MEDS ORDERED: LOSARTAN POTASSIUM 50 MG TABLET PO ONE ×2 (14:15→22:00)
[2019-05-23] MEDS: ACETAMINOPHEN 325 MG TABLET PO PRN (21:36)
[2019-05-23] MEDS: GABAPENTIN 300 MG CAPSULE PO SCH (21:36)
[2019-05-24] MEDS: ENOXAPARIN SODIUM INJ 40 MG/0.4 ML DISP.SYRIN SUBCUT SCH (05:27)
[2019-05-24] MEDS: VALACYCLOVIR HCL 500 MG TABLET PO SCH (05:28)
[2019-05-24 05:36] LABS: ANION GAP 7 (5-19); BLOOD UREA NITROGEN 14 mg/dL (7-20); CALCIUM 8.7 mg/dL (8.4-10.2); CARBON DIOXIDE 22 mmol/L (22-30); CHLORIDE 114 mmol/L (98-107); GLUCOSE 98 mg/dL (75-110); POTASSIUM 3.9 mmol/L (3.6-5.0)
[2019-05-24] MEDS ORDERED: AMLODIPINE BESYLATE 2.5 MG TABLET PO SCH (08:00)
[2019-05-24] MEDS: INSULIN LISPRO 100 UNIT/ML 3 ML VIAL SUBCUT SCH (09:36)
[2019-05-24] MEDS: CLOTRIMAZOLE/BETAMETHASONE DIP CREAM 15 GM TOP SCH (09:38)
[2019-05-24] MEDS: FAMOTIDINE 20 MG TABLET PO SCH (09:39)
[2019-05-24] MEDS ORDERED: LOSARTAN POTASSIUM 50 MG TABLET PO SCH (10:00)
[2019-05-24] MEDS ORDERED: LEVOFLOXACIN 500 MG TABLET PO SCH (10:00)
--- NOTE | 2019-05-24 12:08 | PDOC DISCHARGE SUMMARY ---
General - Admit/Disc Date/PCP Admission Date/Primary Care Provider: 05/18/19 22:55 MICHI ISAACS MD Discharge Date: 05/24/19 - Discharge Diagnosis (1) Sepsis Is this a current diagnosis for this admission?: Yes Summary: Currently all resolved continues to p.o. antibiotic (2) Urinary tract infection Is this a current diagnosis for this admission?: Yes Summary: Continues to Levaquin (3) Type 2 diabetes mellitus Is this a current diagnosis for this admission?: Yes Summary: Patient is currently on a diet controlled (4) Hypoxia Is this a current diagnosis for this admission?: Yes (5) Tachycardia Is this a current diagnosis for this admission?: Yes Summary: Follow with the Dr. Gutierres as per discussed with him (6) Hypotension Is this a current diagnosis for this admission?: Yes Summary: Due to the sepsis currently all resolved (7) Hyperlipidemia Is this a current diagnosis for this admission?: Yes (8) Rash Is this a current diagnosis for this admission?: Yes Summary: Continues to Valtrex and steroid creams (9) Hypertension Is this a current diagnosis for this admission?: Yes Summary: As per discussed with the Dr. Hebert started on losartan and Norvasc - Additional Information Discharge Diet: Diabetic Discharge Activity: Activity As Tolerated Prescriptions: Amlodipine Besylate [Norvasc 2.5 mg Tablet] 2.5 mg PO Q12 #60 tablet Clotrimazole/Betamethasone Dip [Lotrisone Cream 15 gm] 1 applic TOP BID #2 tube Levofloxacin [Levaquin 500 mg Tablet] 500 mg PO DAILY #7 tablet Losartan Potassium [Cozaar 50 mg Tablet] 50 mg PO BID #60 tablet Valacyclovir HCl [Valtrex 500 mg Tablet] 1,000 mg PO Q8 #21 tablet Home Medications: Acetaminophen [Tylenol Extra Strength 500 mg Tablet] 500 mg PO QHS 05/19/19 Esomeprazole Magnesium 40 mg PO QHS 05/19/19 Gabapentin [Neurontin 300 mg Capsule] 300 mg PO QHS 05/19/19 Solifenacin Succinate [Vesicare] 5 mg PO QHS 05/19/19 Amlodipine Besylate [Norvasc 2.5 mg Tablet] 2.5 mg PO Q12 #60 tablet 05/24/19 Clotrimazole/Betamethasone Dip [Lotrisone Cream 15 gm] 1 applic TOP BID #2 tube 05/24/19 Levofloxacin [Levaquin 500 mg Tablet] 500 mg PO DAILY #7 tablet 05/24/19 Losartan Potassium [Cozaar 50 mg Tablet] 50 mg PO BID #60 tablet 05/24/19 Valacyclovir HCl [Valtrex 500 mg Tablet] 1,000 mg PO Q8 #21 tablet 05/24/19 History of Present Illness History of Present Illness: ANA CRISTINA DOVE is a 63 year old female This is a 63-year-old female presenting the emergency department with a fever. Patient stated for the last week she had a cough and on and a fever at home Patients feel tired and fatigue not feeling well developed mild cough in the morning nonproductive no runny nose no nasal congestions no sore throat Patient is denied any abdominal pain no nausea no vomiting In the emergency departments all work-up pretty much stable except patient's white count was elevated patient was hypotensive's and patient urine is positive and ER physicians call me for admit for the urosepsis Patient is came to the floor and the nurses noted that the patient's was suddenly get hypoxic and tachypneic and the patient to not feeling well and at that point patient heart rate was 1 30-1 40 range and patient's was giving the Cardizem push and put on Cardizem drips After the Cardizem drip patient is feeling much better when I saw in the floor patient denied any chest pain to than any shortness of the breath no nausea no vomiting Patient's according to her she does not have a known heart disease. Review the echocardiogram was done in 2018 some mild diastolic dysfunctions but no other abnormalities Patient received the IV antibiotic including the vancomycin's and cefepime in the ER With the sudden getting hypoxic and tachypneic we will order the CT angiogram to rule out any underlying pulmonary embolism Discussed with the patient about CODE STATUS patients want to intubations and CPR but do not want to keep her tubes more than 12 hours and if it is require more than 12-hour patient wants to be a comfort care Patients do not have any family member and pretty much what the patient's medical decisions today was fully alert awake oriented x4 Discussed this discussions with the myself and the nurses in [facility] and patient aware about that Hospital Course Hospital Course: This is a 63-year-old female present in the emergency department with the hypotensive's fever find urosepsis and patient's blood culture is positive for E. coli sepsis And was put on IV cefepime and patient's response very well with the IV fluids Patient's also developed a sudden hypoxia episodes and tachycardia and patient had a CT angiogram was done was negative for any PE and cardiology work-up was all stable seen by Dr. Gutierres Patient's otherwise also developed a rash on the Right breast area below which treated with the possible shingles versus candidiasis Patient is otherwise doing well for the last 2 days on the p.o. antibiotic Patient is walking the hallway without any problems Patient's p.o. intake is good Patients follow outpatients Dr. Gutierres Follow in office 1 week Physical Exam Vital Signs: Temp Pulse Resp BP Pulse Ox 97.6 F 65 18 173/80 H 99 05/24/19 07:30 05/24/19 07:30 05/24/19 07:30 05/24/19 07:30 05/24/19 07:30 Intake & Output 05/23/19 05/24/19 05/25/19 06:59 06:59 06:59 Intake Total 441 980 Output Total 1800 2000 Balance -1359 -1020 Weight 83.8 kg 84.3 kg General appearance: PRESENT: no acute distress, well-developed, well-nourished Head exam: PRESENT: atraumatic, normocephalic Eye exam: PRESENT: conjunctiva pink, EOMI, PERRLA. ABSENT: scleral icterus Ear exam: PRESENT: normal external ear exam Mouth exam: PRESENT: moist, tongue midline Neck exam: PRESENT: full ROM. ABSENT: carotid bruit, JVD, lymphadenopathy, thyromegaly Respiratory exam: PRESENT: clear to auscultation nghia Cardiovascular exam: PRESENT: RRR. ABSENT: diastolic murmur, rubs, systolic murmur Pulses: PRESENT: normal dorsalis pedis pul, +2 pedal pulses bilateral Vascular exam: PRESENT: normal capillary refill GI/Abdominal exam: PRESENT: normal bowel sounds, soft. ABSENT: distended, guarding, mass, organolmegaly, rebound, tenderness Rectal exam: PRESENT: deferred Musculoskeletal exam: PRESENT: ambulatory Neurological exam: PRESENT: alert, awake, oriented to person, oriented to place, oriented to time, oriented to situation, CN II-XII grossly intact. ABSENT: m otor sensory deficit Psychiatric exam: PRESENT: appropriate affect, normal mood. ABSENT: homicidal ideation, suicidal ideation Skin exam: PRESENT: dry, intact, warm. ABSENT: cyanosis, rash Additional comments: Right below breast raises all improving Results Laboratory Results: 05/22/19 04:45 05/24/19 04:46 05/24/19 04:46 Sodium 143.2 Potassium 3.9 Chloride 114 H Carbon Dioxide 22 Anion Gap 7 BUN 14 Creatinine 0.92 Est GFR ( Amer) > 60 Est GFR (Non-Af Amer) > 60 Glucose 98 Calcium 8.7 05/18/19 22:16 Blood Blood Culture - Final NO GROWTH IN 5 DAYS 05/19/19 05/19/19 05/19/19 02:40 02:40 08:46 Creatine Kinase 90 113 CK-MB (CK-2) 2.35 Troponin I 0.018 NT-Pro-B Natriuret Pep 2530 H 05/19/19 05/19/19 05/19/19 08:46 15:00 15:00 Creatine Kinase 125 CK-MB (CK-2) 2.45 2.34 Troponin I 0.041 0.031 NT-Pro-B Natriuret Pep 05/19/19 05/19/19 20:40 20:40 Creatine Kinase 120 CK-MB (CK-2) 2.07 Troponin I 0.025 NT-Pro-B Natriuret Pep Impressions: Chest X-Ray 05/18/19 19:39 IMPRESSION: 1. No acute pulmonary process identified. Abdomen/Pelvis CT 05/19/19 00:00 IMPRESSION: No acute process. Chest/Abdomen CTA 05/19/19 02:33 IMPRESSION: 1. No CT evidence to suggest acute or chronic pulmonary embolism, aortic aneurysm or aortic dissection. 2. No evidence of acute intrathoracic disease. 3. Very small hiatal hernia. 4. Elevation of the right hemidiaphragm. Qualifiers - * PATIENT BEING DISCHARGED WITH ANY OF THE FOLLOWING DIAGNOSIS: No VTE patient discharged on overlapping Therapy?: Yes Acute Heart Failure - Is this a Heart Failure Patient?: No Plan Time Spent: Greater than 30 Minutes - Follow in office in 1 week repeat the CBC and Chem-7
[2019-05-24 12:26] VITALS: BP 156/74
== END 2019-05-24 13:45 | disposition home health service (06) | DRG 872 ==
LOC: ER 19:14 → EH 22:55 → 3S 05-19 00:45
PROVIDERS: ADMIT Family Medicine; ATTEND Family Medicine
DX: A41.9 Sepsis, unspecified organism (principal); N39.0 Urinary tract infection, site not specified; E11.9 Type 2 diabetes mellitus without complications; R09.02 Hypoxemia; R00.0 Tachycardia, unspecified; E78.5 Hyperlipidemia, unspecified; R21 Rash and other nonspecific skin eruption; I10 Essential (primary) hypertension; J45.909 Unspecified asthma, uncomplicated; K21.9 Gastro-esophageal reflux disease without esophagitis; M10.9 Gout, unspecified; M19.90 Unspecified osteoarthritis, unspecified site; Z88.8 Allergy status to other drugs, medicaments and biological substances; Z91.011 Allergy to milk products; R01.1 Cardiac murmur, unspecified; E86.0 Dehydration
CPT/HCPCS: 36415; 51702; 71045; 71275; 74176; 80048; 80053; 80061; 80076; 81001; 82550; 82553; 82803; 82962; 83036; 83605; 83735; 83880; 84439; 84443; 84481; 84484; 85025; 87040; 87077; 87086; 87186; 87493; 93005; 93010; 96365; 96366; 96368; 99291; J0692; J1650; J2405; J3370; J3475; J3490; J7030; J7060; J7120

== ENCOUNTER → 2019-07-17 | Outpatient (CLI) | payer MEDICAID ==
--- NOTE | 2019-07-20 19:43 | XCELERA REPORT ---
[address] [address] Transthoracic Echocardiogram Report Name: ANA CRISTINA DOVE Age: 63 yrs Gender: Female : 1955 Patient Status: Outpatient Patient Location: [facility] Study Date: 07/17/2019 10:39 AM Height: 63 in Weight: 186 lb BSA: 1.9 m2 Procedure: A two-dimensional transthoracic echocardiogram with color flow and Doppler was performed. The study was technically difficult with many images being suboptimal in quality. Reason For Study: ABN EKG History: ABN EKG. Ordering Physician: ARANZA JEROME Performed By: Holly Rodriguez Interpretation Summary The left ventricle is normal in size. There is mild concentric left ventricular hypertrophy. LV EF is 65% The left ventricular ejection fraction is within normal limits. Doppler measurements suggest normal left ventricular diastolic function The left ventricular wall motion is normal. There is no thrombus. No ASD ,VSD , or PFO seen. The right ventricle is grossly normal size. The right ventricle is not well visualized secondary to technical limitations The right atrium is normal. The left atrial size is normal. There is no evidence of mitral valve prolapse. There is no vegetation seen on the mitral valve. There is no mitral valve stenosis. There is a trace amount of mitral regurgitation There is no aortic valvular vegetation. There is mild aortic stenosis There is a peak gradient of 14.5 mm of Hg. No hemodynamically significant valvular aortic stenosis. No aortic regurgitation is present. There is no tricuspid stenosis. There is a trace amount of tricuspid regurgitation There is mild pulmonary hypertension by echo RVSP is 32 to 37 , with RA mean of 5 to 10. There is no pulmonic valvular stenosis. There is a mild amount of pulmonic regurgitation The aortic root is normal size. The inferior vena cava appeared normal and decreased > 50% with respiration (RAP 5-10 mmHg) There is no pericardial effusion. MMode/2D Measurements & Calculations RVDd: 3.2 cm LVIDd: 4.9 cm FS: 37.9 % Ao root diam: 3.0 cm IVSd: 1.3 cm LVIDs: 3.0 cm EDV(Teich): 113.2 ml Ao root area: 6.8 cm2 LVPWd: 1.2 cm ESV(Teich): 36.3 ml EF(Teich): 67.9 % Doppler Measurements & Calculations MV E max mario alberto: MV dec slope: Ao V2 max: LV V1 max P.2 cm/sec 528.2 cm/sec2 190.1 cm/sec 4.8 mmHg MV A max mario alberto: MV dec time: Ao max PG: LV V1 max: 103.5 cm/sec 0.22 sec 14.5 mmHg 109.4 cm/sec MV E/A: 1.1 PA V2 max: PI end-d mario alberto: TR max mario alberto: 78.3 cm/sec 85.0 cm/sec 260.6 cm/sec PA max P.5 mmHg TR max P.3 mmHg Left Ventricle The left ventricle is normal in size. There is mild concentric left ventricular hypertrophy. LV EF is 65%. The left ventricular ejection fraction is within normal limits. Doppler measurements suggest normal left ventricular diastolic function. The left ventricular wall motion is normal. There is no thrombus. No ASD ,VSD , or PFO seen. Right Ventricle The right ventricle is grossly normal size. The right ventricle is not well visualized secondary to technical limitations. Atria The right atrium is normal. The left atrial size is normal. Mitral Valve There is no evidence of mitral valve prolapse. There is no vegetation seen on the mitral valve. There is no mitral valve stenosis. There is a trace amount of mitral regurgitation. Aortic Valve There is no aortic valvular vegetation. There is mild aortic stenosis. There is a peak gradient of 14.5 mm of Hg. No hemodynamically significant valvular aortic stenosis. No aortic regurgitation is present. Tricuspid Valve There is no tricuspid stenosis. There is a trace amount of tricuspid regurgitation. There is mild pulmonary hypertension by echo. RVSP is 32 to 37 , with RA mean of 5 to 10. Pulmonic Valve There is no pulmonic valvular stenosis. There is a mild amount of pulmonic regurgitation. Great Vessels The aortic root is normal size. The inferior vena cava appeared normal and decreased > 50% with respiration (RAP 5-10 mmHg). Effusions There is no pericardial effusion. : ARANZA JEROME Lakshmi
== END ==
LOC: SP 10:29
PROVIDERS: ATTEND Specialist
DX: R94.31 Abnormal electrocardiogram [ECG] [EKG] (principal)
CPT/HCPCS: 93306

== ENCOUNTER → 2020-05-07 | Outpatient (CLI) | payer MEDICAID ==
--- NOTE | 2020-05-07 12:13 | WOMENS IMAGING REPORT ---
EXAM DESCRIPTION: BILAT SCREENING MAMMO W/CAD IMAGES COMPLETED DATE/TIME: 05/07/2020 11:46 am REASON FOR STUDY: Z12.31 ENCNTR SCREEN MAMMOGRAM FOR MALIGNANT NEOPLASM OF BREAST Z12.31 ENCNTR SCR EEN MAMMOGRAM FOR MALIGNANT NEOPLASM OF DARRICK COMPARISON: [id number] EXAM PARAMETERS: Standard craniocaudal and mediolateral oblique views of each breast recorded using digital acquisition. Read with the assistance of CAD. .[facility] - [employer] Version 9.2 LIMITATIONS: None. FINDINGS: No suspicious masses, suspicious calcifications or architectural distortion. No areas of c oncern. IMPRESSION: NEGATIVE MAMMOGRAM. BIRADS 1 BREAST DENSITY: b. There are scattered areas of fibroglandular density. BIRAD: ASSESSMENT: 1 NEGATIVE RECOMMENDATION: ROUTINE SCREENING COMMENT: The patient has been notified of the results by letter per MQSA requirements. Additional no tification policies are in place for contacting patient with suspicious or incomplete findings. Quality ID #[id number]: The [employer] recommends an annual screening mammogram for women aged 40 years or over. This facility utilizes a reminder system to ensure that all patients receive reminder letters, and/or direct phone calls for appointments. This includes reminders for routine scr eening mammograms, diagnostic mammograms, or other Breast Imaging Interventions when appropriate. Th is patient will be placed in the appropriate reminder system. TECHNICAL DOCUMENTATION: FINDING NUMBER: (1) ASSESSMENT: (1) JOB ID: [id number] 2010 [employer]- All Rights Reserved Reading location - IP/workstation name: [email or web address]
== END ==
LOC: WI 11:10
PROVIDERS: ATTEND Physician Assistant
DX: Z12.31 Encounter for screening mammogram for malignant neoplasm of breast (principal)
CPT/HCPCS: 77067